=== PATIENT | male | born 1935 | race Caucasian/White ===

== ENCOUNTER → 2016-11-04 | Outpatient (CLI) | payer MEDICARE, BC ==
[2016-11-04 08:29] LABS: Appearance,Urine Clear (Clear); Basophils # (A) 0.1 k/uL (0-0.2); Basophils % (A) 1 %; Bilirubin,Urine Negative (Negative); CH 31.7; Eosinophils # (A) 0.7 k/uL (0-0.7); Eosinophils % (A) 9 %; Glucose,Urine (UA) Negative (Negative); HGB 14.6 gm/dL (13.0-17.5); Ketones,Urine Negative (Negative); Leukocyte Esterase,Urine Negative (Negative); Luc # (Auto) 0.14; Luc % (Auto) 2; Lymphocytes # (A) 1.6 k/uL (1.0-4.8); Lymphocytes % (A) 20 %; MCH 31.1 pg (25.0-35.0); MCHC 33.1 g/dL (31.0-37.0); MCV 93.9 fL (80.0-100.0); Mean Platelet Volume 8.1; Monocytes # (A) 0.4 k/uL (0-1.0); Monocytes % (A) 6 %; Neutrophils % (A) 63 %; Nitrite,Urine Negative (Negative); Protein,Urine Trace (Negative); RBC 4.68 m/uL (4.30-5.90); RDW 13.6 % (11.5-15.5); Specific Gravity,Urine 1.007 (1.001-1.035); UA Billing (MACRO vs. MICRO) CHEM; Urobilinogen,Urine <2.0 mg/dL (<2.0); WBC 7.9 k/uL (3.8-10.6); WBC (Perox) 8.24
[2016-11-04 10:37] LABS: Calcium 9.4 mg/dL (8.4-10.2); Magnesium 1.9 mg/dL (1.6-2.3); Potassium 4.1 mmol/L (3.5-5.1); Uric Acid 6.6 mg/dL (3.5-8.5)
[2016-11-04 10:46] LABS: % Iron Saturation 34.9 % (20-50)
== END | disposition home or self-care (01) ==
LOC: LABWHC1 07:42
PROVIDERS: ATTEND Nurse Practitioner Family
DX: N18.4 Chronic kidney disease, stage 4 (severe) (principal); N39.0 Urinary tract infection, site not specified; D64.9 Anemia, unspecified; E55.9 Vitamin D deficiency, unspecified; E79.0 Hyperuricemia without signs of inflammatory arthritis and tophaceous disease
CPT/HCPCS: 36415; 80048; 81003; 82040; 82306; 82728; 83540; 83550; 83735; 83970; 84100; 84550; 85025

== ENCOUNTER → 2016-11-06 | Outpatient (CLI) | payer MEDICARE, BC ==
--- NOTE | 2016-11-06 11:39 | US ---
EXAMINATION TYPE: US kidneys/renal and bladder DATE OF EXAM: 11/06/2016 7:55 AM COMPARISON: Previous exam October CLINICAL HISTORY: enlarged prostate , f/u cyst EXAM MEASUREMENTS: Right Kidney: 9.5 x 4.1 x 4.4 cm Left Kidney: 9.4 x 4.3 x 4.4 cm Post Void Residual Volume: 292.5 ml ANATOMY Right Kidney: small cyst upper pole 0.97 x 0.9 x 0.6 cm Left Kidney: wnl Bladder: wnl Bilateral Jets seen: yes Normal Post Void Residual: no There is no evidence for hydronephrosis at this point in time. No nephrolithiasis is seen. No yaa s are identified. The urinary bladder is anechoic. There is an elevated post void residual volume. B ilateral ureteral jets are seen. Small upper pole right renal cyst is stable. No internal echoes, there is increased through transmiss ion, imperceptible wall. IMPRESSION: Correlate for bladder outlet obstruction. Stable upper pole right renal cyst thought to be simple Normal Values: Renal Length = 9 - 12cm Bladder Wall: < 0.3cm
== END ==
LOC: RADUSWWP 07:21
PROVIDERS: ATTEND Urology
DX: N28.1 Cyst of kidney, acquired (principal)
CPT/HCPCS: 76770

== ENCOUNTER → 2017-01-01 | Outpatient (CLI) | payer MEDICARE, BC ==
[2017-01-01 10:12] LABS: ALT 33 U/L (21-72); AST 35 U/L (17-59); Cholesterol 113 mg/dL (<200); HDL Cholesterol 29 mg/dL (40-60); Triglycerides 152 mg/dL (<150)
== END | disposition home or self-care (01) ==
LOC: LABWHC1 12-31 11:43
PROVIDERS: ATTEND Internal Medicine Cardiovascular Disease
DX: E78.5 Hyperlipidemia, unspecified (principal)
CPT/HCPCS: 36415; 80061; 84450; 84460

== ENCOUNTER → 2017-03-20 | Outpatient (CLI) | payer MEDICARE, BC ==
[2017-03-20 08:02] LABS: Basophils % (A) 0 %; CH 31.7; CHCM 32.9; Eosinophils # (A) 0.3 k/uL (0-0.7); Eosinophils % (A) 5 %; HCT 43.2 % (39.0-53.0); HDW 2.62; HGB 14.3 gm/dL (13.0-17.5); Luc # (Auto) 0.18; Luc % (Auto) 3; Lymphocytes % (A) 30 %; MCH 32.1 pg (25.0-35.0); MCHC 33.1 g/dL (31.0-37.0); MCV 96.7 fL (80.0-100.0); Mean Platelet Volume 7.4; Monocytes # (A) 0.4 k/uL (0-1.0); Monocytes % (A) 6 %; Neutrophils # (A) 3.9 k/uL (1.3-7.7); Neutrophils % (A) 57 %; RBC 4.47 m/uL (4.30-5.90); RDW 14.1 % (11.5-15.5); WBC 6.8 k/uL (3.8-10.6); WBC (Perox) 6.67
[2017-03-20 08:05] LABS: Appearance,Urine Clear (Clear); Bilirubin,Urine Negative (Negative); Glucose,Urine (UA) Negative (Negative); Ketones,Urine Negative (Negative); Leukocyte Esterase,Urine Negative (Negative); Nitrite,Urine Negative (Negative); PH, Urine 5.5 (5.0-8.0); Protein,Urine Negative (Negative); Specific Gravity,Urine 1.007 (1.001-1.035); UA Billing (MACRO vs. MICRO) CHEM; Urobilinogen,Urine <2.0 mg/dL (<2.0)
[2017-03-20 09:24] LABS: Calcium 9.9 mg/dL (8.4-10.2); Magnesium 2.5 mg/dL (1.6-2.3); Phosphorous 3.2 mg/dL (2.5-4.5); Potassium 4.8 mmol/L (3.5-5.1); Uric Acid 6.9 mg/dL (3.5-8.5)
[2017-03-20 09:32] LABS: % Iron Saturation 20.3 % (20-50)
== END | disposition home or self-care (01) ==
LOC: LABWHC1 07:34
PROVIDERS: ATTEND Nurse Practitioner Family
DX: N18.4 Chronic kidney disease, stage 4 (severe) (principal); E55.9 Vitamin D deficiency, unspecified; M10.9 Gout, unspecified; N25.81 Secondary hyperparathyroidism of renal origin; N39.0 Urinary tract infection, site not specified
CPT/HCPCS: 36415; 80048; 81003; 82040; 82306; 82728; 83540; 83550; 83735; 83970; 84100; 84550; 85025

== ENCOUNTER → 2018-01-27 | Outpatient (CLI) | payer MEDICARE, BC ==
[2018-01-27 07:36] LABS: Basophils % (A) 0 %; Eosinophils # (A) 0.2 k/uL (0-0.7); Eosinophils % (A) 2 %; HCT 40.5 % (39.0-53.0); HGB 13.5 gm/dL (13.0-17.5); Lymphocytes # (A) 2.1 k/uL (1.0-4.8); Lymphocytes % (A) 20 %; MCHC 33.3 g/dL (31.0-37.0); Mean Platelet Volume 7.4; Monocytes # (A) 0.4 k/uL (0-1.0); Monocytes % (A) 4 %; Neutrophils # (A) 7.4 k/uL (1.3-7.7); Neutrophils % (A) 73 %; Platelet Count 235 k/uL (150-450); RBC 4.35 m/uL (4.30-5.90); RDW 14.1 % (11.5-15.5); WBC 10.1 k/uL (3.8-10.6)
[2018-01-27 07:49] LABS: Calcium 9.1 mg/dL (8.4-10.2); Phosphorus 3.2 mg/dL (2.5-4.5); Potassium 3.9 mmol/L (3.5-5.1); Uric Acid 6.1 mg/dL (3.5-8.5)
[2018-01-27 10:40] LABS: Iron Saturation 21.28 (15.00-50.00)
[2018-01-27 10:49] LABS: Vitamin D 25 Hydroxy 46.7 ng/mL (30.0-100.0)
[2018-01-27 11:31] LABS: Parathyroid Hormone Intact 135.7 pg/mL (14.0-72.0)
[2018-01-27 11:34] LABS: Appearance,Urine Cloudy (Clear); Bacteria,Urine Rare /hpf; Bilirubin,Urine Negative (Negative); Blood,Urine Moderate (Negative); Color,Urine Light Yellow; Glucose,Urine (UA) Negative (Negative); Ketones,Urine Negative (Negative); Leukocyte Esterase,Urine Moderate (Negative); Nitrite,Urine Negative (Negative); PH, Urine 6.5 (5.0-8.0); Protein,Urine 1+ (Negative); RBC,Urine 6 /hpf (0-5); Specific Gravity,Urine 1.006 (1.001-1.035); Squamous Epithelial Cell,Urine 3 /hpf (0-4); Urobilinogen,Urine <2.0 mg/dL (<2.0); WBC,Urine 22 /hpf (0-5)
== END | disposition home or self-care (01) ==
LOC: LABWHC1 07:00
PROVIDERS: ATTEND Internal Medicine Nephrology
DX: N18.4 Chronic kidney disease, stage 4 (severe) (principal); D63.1 Anemia in chronic kidney disease; N25.81 Secondary hyperparathyroidism of renal origin; M10.9 Gout, unspecified; N39.0 Urinary tract infection, site not specified
CPT/HCPCS: 36415; 80048; 81001; 82306; 82728; 83540; 83550; 83735; 83970; 84100; 84550; 85025

== ENCOUNTER → 2018-07-09 | Outpatient (CLI) | payer MEDICARE, BC ==
[2018-07-09 07:46] LABS: Basophils % (A) 0 %; Eosinophils # (A) 0.6 k/uL (0-0.7); Eosinophils % (A) 7 %; HCT 40.9 % (39.0-53.0); Lymphocytes # (A) 1.7 k/uL (1.0-4.8); Lymphocytes % (A) 20 %; MCH 29.8 pg (25.0-35.0); MCHC 31.9 g/dL (31.0-37.0); MCV 93.5 fL (80.0-100.0); Mean Platelet Volume 7.1; Monocytes # (A) 0.5 k/uL (0-1.0); Monocytes % (A) 6 %; Neutrophils # (A) 5.5 k/uL (1.3-7.7); Neutrophils % (A) 64 %; Platelet Count 235 k/uL (150-450); RBC 4.37 m/uL (4.30-5.90); RDW 14.9 % (11.5-15.5); WBC 8.5 k/uL (3.8-10.6)
[2018-07-09 08:29] LABS: Appearance,Urine Cloudy (Clear); Bacteria,Urine Many /hpf; Bilirubin,Urine Negative (Negative); Blood,Urine Trace (Negative); Color,Urine Light Yellow; Glucose,Urine (UA) Negative (Negative); Ketones,Urine Negative (Negative); Leukocyte Esterase,Urine Large (Negative); Mucus,Urine Rare /hpf; Nitrite,Urine Positive (Negative); Protein,Urine 1+ (Negative); RBC,Urine 1 /hpf (0-5); Specific Gravity,Urine 1.011 (1.001-1.035); Squamous Epithelial Cell,Urine <1 /hpf (0-4); Urobilinogen,Urine <2.0 mg/dL (<2.0); WBC,Urine 154 /hpf (0-5)
[2018-07-09 09:02] LABS: Calcium 9.1 mg/dL (8.4-10.2); Digoxin 0.7 ng/mL; Magnesium 2.1 mg/dL (1.6-2.3); Phosphorus 3.2 mg/dL (2.5-4.5); Potassium 4.3 mmol/L (3.5-5.1); Uric Acid 5.8 mg/dL (3.5-8.5)
[2018-07-09 11:36] LABS: Iron Saturation 13.86 (15.00-50.00)
[2018-07-09 11:39] LABS: Parathyroid Hormone Intact 84.2 pg/mL (14.0-72.0)
[2018-07-09 11:44] LABS: Vitamin D 25 Hydroxy 39.2 ng/mL (30.0-100.0)
== END | disposition home or self-care (01) ==
LOC: LABWHC1 07:04
PROVIDERS: ATTEND Internal Medicine Cardiovascular Disease
DX: N18.4 Chronic kidney disease, stage 4 (severe) (principal); D63.1 Anemia in chronic kidney disease; N25.81 Secondary hyperparathyroidism of renal origin; E55.9 Vitamin D deficiency, unspecified; M10.9 Gout, unspecified; N39.0 Urinary tract infection, site not specified; I50.9 Heart failure, unspecified
CPT/HCPCS: 36415; 80048; 80162; 81001; 82306; 82728; 83540; 83550; 83735; 83970; 84100; 84550; 85025

== ENCOUNTER → 2018-09-28 | Outpatient (CLI) | payer MEDICARE, BC ==
--- NOTE | 2018-09-28 12:40 | XR ---
EXAMINATION TYPE: XR ankle complete LT DATE OF EXAM: 09/28/2018 CLINICAL HISTORY: Chronic left ankle pain TECHNIQUE: Frontal, lateral and oblique images of the left ankle are obtained. COMPARISON: None. FINDINGS: There is no acute fracture/dislocation evident in the left ankle. The ankle mortise appea rs within normal limits. There is soft tissue prominence dorsally and medially over the region of the deltoid ligament. Small plantar enthesophyte is noted as well as calcific tendinopathy of the Achill es tendon. Small vessel atherosclerosis is also seen. Mild hindfoot arthropathy is demonstrated as os seous proliferation. IMPRESSION: 1. No acute fracture or dislocation in the left ankle. 2. Mild hindfoot arthropathy and nonspecific soft tissue swelling over the region of the deltoid yesica a. MR could further evaluate this ligament. 3. Small plantar heel spur.
== END | disposition home or self-care (01) ==
LOC: RADXRMAIN 11:01
PROVIDERS: ATTEND Family Medicine
DX: M19.072 Primary osteoarthritis, left ankle and foot (principal); M77.32 Calcaneal spur, left foot

== ENCOUNTER → 2018-10-19 | Outpatient (CLI) | payer MEDICARE, BC ==
[2018-10-19 08:26] LABS: Basophils % (A) 1 %; Eosinophils # (A) 0.6 k/uL (0-0.7); Eosinophils % (A) 7 %; HGB 13.8 gm/dL (13.0-17.5); Lymphocytes # (A) 1.7 k/uL (1.0-4.8); Lymphocytes % (A) 19 %; MCH 31.3 pg (25.0-35.0); MCHC 33.7 g/dL (31.0-37.0); Mean Platelet Volume 7.3; Monocytes # (A) 0.6 k/uL (0-1.0); Monocytes % (A) 7 %; Neutrophils # (A) 5.5 k/uL (1.3-7.7); Neutrophils % (A) 64 %; Platelet Count 208 k/uL (150-450); RBC 4.41 m/uL (4.30-5.90); RDW 14.3 % (11.5-15.5); WBC 8.6 k/uL (3.8-10.6)
[2018-10-19 11:37] LABS: Iron Saturation 25.8 (15.00-50.00)
[2018-10-19 11:42] LABS: Albumin 4.1 g/dL (3.80-4.90); Anion Gap 9.8 mmol/L (4.00-12.00); Calcium 9.6 mg/dL (8.7-10.3); Carbon Dioxide 28.2 mmol/L (21.6-31.8); Phosphorus 3.2 mg/dL (2.4-5.1); Potassium 4.1 mmol/L (3.5-5.5); Uric Acid 6.5 mg/dL (3.7-8.7)
[2018-10-19 11:46] LABS: Parathyroid Hormone Intact 99.4 pg/mL (14.0-72.0); Vitamin D 25 Hydroxy 41.5 ng/mL (30.0-100.0)
[2018-10-19 11:54] LABS: Creatinine,Urine Random 58.4 mg/dL
[2018-10-19 11:56] LABS: Total Protein,Urine Random 35.6 mg/dL (0.0-13.5)
== END | disposition home or self-care (01) ==
LOC: LABWHC1 07:08
PROVIDERS: ATTEND Nurse Practitioner Family
DX: M10.9 Gout, unspecified (principal); E55.9 Vitamin D deficiency, unspecified; D63.1 Anemia in chronic kidney disease; N25.81 Secondary hyperparathyroidism of renal origin; N18.4 Chronic kidney disease, stage 4 (severe)
CPT/HCPCS: 36415; 80048; 82040; 82306; 82570; 82728; 83540; 83550; 83735; 83970; 84100; 84156; 84550; 85025

== ENCOUNTER 2019-02-26 07:45 | Emergency (ER) | payer MEDICARE ==
[2019-02-26 07:56] VITALS: BP 147/87; PULSE 74; RESP 18; TEMP 97.4
--- NOTE | 2019-02-26 07:58 | ED ---
Head Injury HPI - General Chief complaint: Head Injury Stated complaint: fall, head lac Time Seen by Provider: 02/26/19 07:56 Source: patient, family, RN notes reviewed, old records reviewed Mode of arrival: ambulatory Limitations: no limitations - History of Present Illness Initial comments: In this is an 81-year-old female the ER status post fall. Patient a fall hitting his head on the dresser, is following already is on blood thinners. Patient complaining of head. Bleeding no loss of consciousness. No other injuries noted MD Complaint: head injury, head pain, fall -: minutes(s) Mechanism of Injury: unsure Location: parietal Loss of Consciousness: no Previous Trauma to this Area: No Severity: mild Quality: sharp Consistency: constant Provoking factors: none known Other Injuries: laceration Context: on Warfarin Associated Symptoms: denies other symptoms - Related Data Home Medications Medication Instructions Recorded Confirmed Atorvastatin [Lipitor] 20 mg PO DAILY 01/17/16 04/11/16 Calcitriol 0.25 mcg PO MOWEFR 01/17/16 04/11/16 Digoxin [Digitek] 125 mcg PO DAILY 01/17/16 04/11/16 Ergocalciferol [Vitamin D2 50,000 unit PO QMONTH 01/17/16 04/11/16 (DRISDOL)] Febuxostat [Uloric] 40 mg PO HS 01/17/16 04/11/16 Furosemide 60 mg PO BID 01/17/16 04/11/16 Ipratropium/Albuterol Sulfate 1 puff INHALATION QID PRN 01/17/16 04/11/16 [Combivent Respimat Inhaler] Nebivolol HCl [Bystolic] 0.5 tab PO QAM 01/17/16 04/11/16 Warfarin Sodium 5 mg PO MOTUTHSA 01/17/16 04/11/16 Warfarin [Coumadin] 2.5 mg PO SUWEFR 01/17/16 04/11/16 Ipratropium-Albuterol Nebulize 1 applicate INHALATION QID 01/18/16 04/11/16 [Duoneb 0.5 mg-3 mg/3 ml Soln] Acetaminophen [Tylenol] 500 mg PO QAM 04/08/16 04/11/16 Ciprofloxacin HCl [Cipro] 500 mg PO Q12HR 04/08/16 04/11/16 Ferrous Sulfate [Feosol] 325 mg PO DAILY 04/08/16 04/11/16 Sennosides/Docusate Sodium 1 tab PO DAILY 04/08/16 04/11/16 [Docusate Sodium-Senna Tablet] Tamsulosin [Flomax] 0.4 mg PO HS 04/08/16 04/11/16 Allergies/Adverse reactions: Allergies Allergy/AdvReac Type Severity Reaction Status Date / Time No Known Allergies Allergy Verified 02/26/19 07:53 Review of Systems ROS Statement: Those systems with pertinent positive or pertinent negative responses have been documented in the HPI. ROS Other: All systems not noted in ROS Statement are negative. Past Medical History Past Medical History: Atrial Fibrillation, Heart Failure, Hyperlipidemia, Hypertension, Prostate Disorder Additional Past Medical History / Comment(s): enlarged prostate, macular dengeration left eye History of Any Multi-Drug Resistant Organisms: None Reported Past Surgical History: Prostate Surgery Additional Past Surgical History / Comment(s): scar tissue removed from penis; prostate problem,left wrist surgery with hardware. double hernia repair; 2 goiter surgeries 1994; right ankle pin Past Anesthesia/Blood Transfusion Reactions: No Reported Reaction Past Psychological History: No Psychological Hx Reported Smoking Status: Former smoker Past Alcohol Use History: None Reported Past Drug Use History: None Reported - Past Family History Father Family Medical History: Cancer Mother Family Medical History: Cancer Additional Family Medical History / Comment(s): leukemia Brother(s) Family Medical History: Coronary Artery Disease (CAD) General Exam Limitations: no limitations General appearance: alert, in no apparent distress Head exam: Present: normocephalic, normal inspection. Absent: atraumatic (Patient has 10 cm scalp laceration) Eye exam: Present: normal appearance, PERRL, EOMI. Absent: scleral icterus, conjunctival injection, periorbital swelling ENT exam: Present: normal exam, mucous membranes moist Neck exam: Present: normal inspection. Absent: tenderness, meningismus, lymphadenopathy Respiratory exam: Present: normal lung sounds bilaterally. Absent: respiratory distress, wheezes, rales, rhonchi, stridor Cardiovascular Exam: Present: regular rate, normal rhythm, normal heart sounds. Absent: systolic murmur, diastolic murmur, rubs, gallop, clicks GI/Abdominal exam: Present: soft, normal bowel sounds. Absent: distended, tenderness, guarding, rebound, rigid Extremities exam: Present: normal inspection, full ROM, normal capillary refill. Absent: tenderness, pedal edema, joint swelling, calf tenderness Back exam: Present: normal inspection Neurological exam: Present: alert, oriented X3, CN II-XII intact Psychiatric exam: Present: normal affect, normal mood Skin exam: Present: warm, dry, intact, normal color. Absent: rash Course Vital Signs 02/26/19 07:53 Temperature 97.4 F L Pulse Rate 74 Respiratory 18 Rate Blood Pressure 147/87 O2 Sat by Pulse 98 Oximetry Procedures - Laceration Laceration #1 Consent Obtained: verbal consent Indication: laceration Site: scalp Size (cm): 10 Description: linear Depth: simple, single layer Pre-repair: wound explored Type of Sutures: other ([place]) Technique: simple, interrupted Medical Decision Making - Medical Decision Making 83 male the ER for evaluation. Patient presents today for evaluation of fall and head injury on blood thinners. Patient had head laceration which is 60 with mariana, CT brain C-spine is negative for acute disease and patient can be discharged home - Radiology Data Radiology results: report reviewed (CT brain C-spine negative for acute disease), image reviewed Disposition Clinical Impression: Closed head injury, Fall, Scalp laceration Disposition: HOME SELF-CARE Condition: Good Instructions (If sedation given, give patient instructions): Laceration (ED) Is patient prescribed a controlled substance at d/c from ED?: No Referrals: Ladarius Hodges DO [Primary Care Provider] - 1-2 days
--- NOTE | 2019-02-26 08:38 | CT ---
EXAMINATION TYPE: CT brain ben trevizo DATE OF EXAM: 02/26/2019 COMPARISON: None HISTORY: Fall today with posterior injury and laceration CT DLP: 1386.[address] of the brain was performed. The ventricles, basal cisterns and sulci overlying the cerebral convexities demonstrate mild enlargem ent. There is no evidence for intracranial hemorrhage or sulcal effacement. There is decreased attenuatio n about the periventricular white matter and deep white matter of both cerebral hemispheres, compatib le with chronic small vessel ischemia. No mass effects are seen. If symptoms persist consider MRI. Osseous calvarium is intact. IMPRESSION: 1. Age related atrophic and chronic small vessel ischemic change without acute intracranial process seen at this time. CT Cervical Spine: Unenhanced CT of the cervical spine was performed with bone and soft tissue window settings submitted . Coronal and sagittal reconstruction is obtained. There is normal alignment and prevertebral soft tissues. No evidence for acute cervical fracture . Scattered degenerative disc disease and spondylosis. Biapical scarring. IMPRESSION: 1. No evidence for acute fracture or subluxation of the cervical spine.
== END 2019-02-26 08:55 | disposition home or self-care (01) ==
LOC: EC 07:45
DX: S01.01XA Laceration without foreign body of scalp, initial encounter (principal); I48.91 Unspecified atrial fibrillation; I11.0 Hypertensive heart disease with heart failure; I50.9 Heart failure, unspecified; E78.5 Hyperlipidemia, unspecified; Z79.01 Long term (current) use of anticoagulants; Z79.51 Long term (current) use of inhaled steroids; Z79.899 Other long term (current) drug therapy; Z87.891 Personal history of nicotine dependence; W01.198A Fall on same level from slipping, tripping and stumbling with subsequent striking against other object, initial encounter
CPT/HCPCS: 12004; 70450; 72125; 99284

== ENCOUNTER → 2019-03-03 | Outpatient (CLI) | payer MEDICARE ==
[2019-03-03 09:51] LABS: Basophils % (A) 0 %; Eosinophils # (A) 0.4 k/uL (0-0.7); Eosinophils % (A) 5 %; HCT 40.7 % (39.0-53.0); HGB 13.3 gm/dL (13.0-17.5); Lymphocytes # (A) 1.2 k/uL (1.0-4.8); Lymphocytes % (A) 15 %; MCH 31.1 pg (25.0-35.0); MCHC 32.7 g/dL (31.0-37.0); MCV 95.3 fL (80.0-100.0); Mean Platelet Volume 7.6; Monocytes # (A) 0.5 k/uL (0-1.0); Monocytes % (A) 6 %; Neutrophils # (A) 5.8 k/uL (1.3-7.7); Neutrophils % (A) 72 %; Platelet Count 226 k/uL (150-450); RBC 4.27 m/uL (4.30-5.90); RDW 14.2 % (11.5-15.5); WBC 8.1 k/uL (3.8-10.6)
[2019-03-03 16:18] LABS: Albumin 4.1 g/dL (3.80-4.90); Anion Gap 6.4 mmol/L (4.00-12.00); Calcium 9.2 mg/dL (8.7-10.3); Carbon Dioxide 29.6 mmol/L (21.6-31.8); Magnesium 1.8 mg/dL (1.5-2.4); Phosphorus 2.2 mg/dL (2.4-5.1); Uric Acid 6.1 mg/dL (3.7-8.7)
[2019-03-03 16:23] LABS: Parathyroid Hormone Intact 85.9 pg/mL (14.0-72.0)
[2019-03-03 18:35] LABS: Anti-DNA, DS unit <1.0 IU/mL; DNA Double-Stranded NEGATIVE (NEGATIVE)
[2019-03-03 19:54] LABS: Iron Saturation 25.94 (15.00-50.00)
[2019-03-03 21:22] LABS: Creatinine,Urine Random 92.9 mg/dL; Total Protein,Urine Random 121.1 mg/dL (0.0-13.5)
[2019-03-04 13:57] LABS: C-ANCA <1:20 Titer (<1:20); P-ANCA <1:20 Titer (<1:20)
== END | disposition home or self-care (01) ==
LOC: LABWHC1 08:29
PROVIDERS: ATTEND Nurse Practitioner Family
DX: M10.9 Gout, unspecified (principal); N18.3 Chronic kidney disease, stage 3 (moderate); D63.1 Anemia in chronic kidney disease; N25.81 Secondary hyperparathyroidism of renal origin; R80.9 Proteinuria, unspecified
CPT/HCPCS: 36415; 80048; 82040; 82306; 82570; 82728; 83516; 83540; 83550; 83735; 83970; 84100; 84156; 84550; 85025; 86160; 86162; 86225; 86255; 86334; 86335

== ENCOUNTER 2019-04-12 19:27 | Inpatient (IN) | payer MEDICARE ==
[2019-04-12] MEDS ORDERED: IPRATROPIUM-ALBUTEROL 3 ML NEB INHALATION STA (20:29)
[2019-04-12] MEDS ORDERED: ACETAMINOPHEN TAB 500 MG TAB PO STA (20:29)
--- NOTE | 2019-04-12 20:31 | ED ---
General Adult HPI - General Chief complaint: Weakness Stated complaint: Body Aches, weakness Time Seen by Provider: 04/12/19 19:55 Source: patient, RN notes reviewed Mode of arrival: wheelchair Limitations: no limitations - History of Present Illness Initial comments: Patient is a pleasant 84-year-old male presenting to the emergency Department with complaints of difficulty in breathing and fever. Onset of symptoms was today. Patient does have some similar symptoms previously with dyspnea associated with COPD. Patient amiss to having a productive cough with green sputum. Patient has fatigue and myalgias. No abdominal pain. - Related Data Home Medications Medication Instructions Recorded Confirmed Atorvastatin [Lipitor] 20 mg PO DAILY 01/17/16 04/12/19 Calcitriol 0.25 mcg PO MOWEFR 01/17/16 04/12/19 Digoxin [Digitek] 125 mcg PO DAILY 01/17/16 04/12/19 Ergocalciferol [Vitamin D2 50,000 unit PO Q30D 01/17/16 04/12/19 (DRISDOL)] Febuxostat [Uloric] 40 mg PO HS 01/17/16 04/12/19 Furosemide 60 mg PO BID 01/17/16 04/12/19 Ipratropium/Albuterol Sulfate 1 puff INHALATION RT-QID PRN 01/17/16 04/12/19 [Combivent Respimat Inhaler] Warfarin Sodium 5 mg PO MOTUTHSA 01/17/16 04/12/19 Warfarin [Coumadin] 2.5 mg PO SUWEFR 01/17/16 04/12/19 Ipratropium-Albuterol Nebulize 3 ml INHALATION RT-QID 01/18/16 04/12/19 [Duoneb 0.5 mg-3 mg/3 ml Soln] Acetaminophen [Tylenol] 500 mg PO QAM 04/08/16 04/12/19 Ferrous Sulfate [Feosol] 325 mg PO DAILY 04/08/16 04/12/19 Sennosides/Docusate Sodium 1 tab PO DAILY 04/08/16 04/12/19 [Docusate Sodium-Senna Tablet] Tamsulosin [Flomax] 0.4 mg PO HS 04/08/16 04/12/19 Metoprolol Succinate (ER) [Toprol 50 mg PO DAILY 04/12/19 04/12/19 Xl] Allergies Allergy/AdvReac Type Severity Reaction Status Date / Time codeine Allergy Itching Verified 04/12/19 20:33 Review of Systems ROS Statement: Those systems with pertinent positive or pertinent negative responses have been documented in the HPI. ROS Other: All systems not noted in ROS Statement are negative. Constitutional: Reports: fever, chills Eyes: Denies: eye pain ENT: Denies: ear pain Respiratory: Reports: cough, dyspnea Cardiovascular: Denies: chest pain Endocrine: Reports: fatigue Gastrointestinal: Denies: abdominal pain Genitourinary: Denies: dysuria Skin: Denies: rash Neurological: Denies: weakness Past Medical History Past Medical History: Atrial Fibrillation, Heart Failure, Hyperlipidemia, Hypertension, Prostate Disorder Additional Past Medical History / Comment(s): enlarged prostate, macular dengeration left eye History of Any Multi-Drug Resistant Organisms: None Reported Past Surgical History: Prostate Surgery Additional Past Surgical History / Comment(s): scar tissue removed from penis; prostate problem,left wrist surgery with hardware. double hernia repair; 2 goiter surgeries 1994; right ankle pin Past Anesthesia/Blood Transfusion Reactions: No Reported Reaction Past Psychological History: No Psychological Hx Reported Smoking Status: Former smoker Past Alcohol Use History: None Reported Past Drug Use History: None Reported - Past Family History Father Family Medical History: Cancer Mother Family Medical History: Cancer Additional Family Medical History / Comment(s): leukemia Brother(s) Family Medical History: Coronary Artery Disease (CAD) General Exam Limitations: no limitations General appearance: alert, in no apparent distress Head exam: Present: atraumatic Eye exam: Present: normal appearance, PERRL ENT exam: Present: normal oropharynx Neck exam: Present: normal inspection Respiratory exam: Present: wheezes Cardiovascular Exam: Present: tachycardia, irregular rhythm GI/Abdominal exam: Present: soft. Absent: tenderness Extremities exam: Present: normal inspection. Absent: pedal edema, calf tenderness Neurological exam: Present: alert Psychiatric exam: Present: normal affect, normal mood Skin exam: Present: normal color Course Vital Signs 04/12/19 04/12/19 04/12/19 19:49 20:18 20:22 Temperature 100.6 F H 102.1 F H Pulse Rate 122 H Respiratory 18 20 Rate Blood Pressure 124/75 O2 Sat by Pulse 95 Oximetry 04/12/19 04/12/19 21:18 21:24 Temperature Pulse Rate 107 H 111 H Respiratory Rate Blood Pressure O2 Sat by Pulse Oximetry EKG Findings - EKG Comments: EKG Findings:: A. fib with a rate of 101. QRS 84. QT 266. QTc 344. Normal axis. Septal Q waves. No acute ST change. Medical Decision Making - Medical Decision Making Patient reevaluated and somewhat improved. Patient and family updated on results and plan. Case was discussed in detail with Dr. Corley, covering for Dr. Hodges, who will admit. Patient states he sees Dr. Greene as well as. - Lab Data Result diagrams: 04/12/19 20:41 04/12/19 20:41 Lab Results 04/12/19 04/12/19 04/12/19 Range/Units 20:41 20:41 20:41 WBC 17.5 H (3.8-10.6) k/uL RBC 4.41 (4.30-5.90) m/uL Hgb 13.5 (13.0-17.5) gm/dL Hct 40.4 (39.0-53.0) % MCV 91.6 (80.0-100.0) fL MCH 30.7 (25.0-35.0) pg MCHC 33.5 (31.0-37.0) g/dL RDW 13.9 (11.5-15.5) % Plt Count 267 (150-450) k/uL Neutrophils % 89 % Lymphocytes % 5 % Monocytes % 4 % Eosinophils % 1 % Basophils % 0 % Neutrophils # 15.6 H (1.3-7.7) k/uL Lymphocytes # 0.8 L (1.0-4.8) k/uL Monocytes # 0.8 (0-1.0) k/uL Eosinophils # 0.1 (0-0.7) k/uL Basophils # 0.0 (0-0.2) k/uL PT (9.0-12.0) sec INR (<1.2) APTT (22.0-30.0) sec Sodium 136 L (137-145) mmol/L Potassium 3.6 (3.5-5.1) mmol/L Chloride 95 L (98-107) mmol/L Carbon Dioxide 31 H (22-30) mmol/L Anion Gap 10 mmol/L BUN 33 H (9-20) mg/dL Creatinine 1.42 H (0.66-1.25) mg/dL Est GFR (CKD-EPI)AfAm 53 (>60 ml/min/1.73 sqM) Est GFR (CKD-EPI)NonAf 46 (>60 ml/min/1.73 sqM) Glucose 122 H (74-99) mg/dL Plasma Lactic Acid Elias 1.5 (0.7-2.0) mmol/L Calcium 9.0 (8.4-10.2) mg/dL Total Bilirubin 0.8 (0.2-1.3) mg/dL AST 29 (17-59) U/L ALT 34 (21-72) U/L Alkaline Phosphatase 124 (38-126) U/L Total Protein 6.8 (6.3-8.2) g/dL Albumin 3.8 (3.5-5.0) g/dL 04/12/19 Range/Units 20:41 WBC (3.8-10.6) k/uL RBC (4.30-5.90) m/uL Hgb (13.0-17.5) gm/dL Hct (39.0-53.0) % MCV (80.0-100.0) fL MCH (25.0-35.0) pg MCHC (31.0-37.0) g/dL RDW (11.5-15.5) % Plt Count (150-450) k/uL Neutrophils % % Lymphocytes % % Monocytes % % Eosinophils % % Basophils % % Neutrophils # (1.3-7.7) k/uL Lymphocytes # (1.0-4.8) k/uL Monocytes # (0-1.0) k/uL Eosinophils # (0-0.7) k/uL Basophils # (0-0.2) k/uL PT 36.6 H (9.0-12.0) sec INR 3.8 H (<1.2) APTT 36.8 H (22.0-30.0) sec Sodium (137-145) mmol/L Potassium (3.5-5.1) mmol/L Chloride (98-107) mmol/L Carbon Dioxide (22-30) mmol/L Anion Gap mmol/L BUN (9-20) mg/dL Creatinine (0.66-1.25) mg/dL Est GFR (CKD-EPI)AfAm (>60 ml/min/1.73 sqM) Est GFR (CKD-EPI)NonAf (>60 ml/min/1.73 sqM) Glucose (74-99) mg/dL Plasma Lactic Acid Elias (0.7-2.0) mmol/L Calcium (8.4-10.2) mg/dL Total Bilirubin (0.2-1.3) mg/dL AST (17-59) U/L ALT (21-72) U/L Alkaline Phosphatase (38-126) U/L Total Protein (6.3-8.2) g/dL Albumin (3.5-5.0) g/dL - Radiology Data Radiology results: image reviewed (Chest x-ray. Did not reveal acute process, mild blunting right costophrenic angle.) Disposition Clinical Impression: Acute exacerbation of chronic obstructive pulmonary disease (COPD) Disposition: ADMITTED IP TO THIS HOSP Is patient prescribed a controlled substance at d/c from ED?: No Referrals: Ladarius Hodges DO [Primary Care Provider] - 1-2 days Decision Time: 21:29
[2019-04-12 20:57] LABS: Basophils % (A) 0 %; Eosinophils # (A) 0.1 k/uL (0-0.7); Eosinophils % (A) 1 %; HCT 40.4 % (39.0-53.0); HGB 13.5 gm/dL (13.0-17.5); Lymphocytes # (A) 0.8 k/uL (1.0-4.8); Lymphocytes % (A) 5 %; MCH 30.7 pg (25.0-35.0); MCHC 33.5 g/dL (31.0-37.0); MCV 91.6 fL (80.0-100.0); Mean Platelet Volume 7.2; Monocytes # (A) 0.8 k/uL (0-1.0); Monocytes % (A) 4 %; Neutrophils # (A) 15.6 k/uL (1.3-7.7); Neutrophils % (A) 89 %; Platelet Count 267 k/uL (150-450); RBC 4.41 m/uL (4.30-5.90); RDW 13.9 % (11.5-15.5); WBC 17.5 k/uL (3.8-10.6)
[2019-04-12 21:07] LABS: Albumin 3.8 g/dL (3.5-5.0); Potassium 3.6 mmol/L (3.5-5.1); Total Bilirubin 0.8 mg/dL (0.2-1.3); Total Protein 6.8 g/dL (6.3-8.2)
[2019-04-12] MEDS: SODIUM CHLORIDE 0.9% 500 ML 500 ML IV SCH ×2 (21:09→21:30)
[2019-04-12 21:10] LABS: INR 3.8 (<1.2); Partial Thromboplastin Time 36.8 sec (22.0-30.0); Prothrombin Time 36.6 sec (9.0-12.0)
--- NOTE | 2019-04-12 21:23 | XR ---
EXAMINATION TYPE: XR chest 2V DATE OF EXAM: 04/12/2019 COMPARISON: 01/17/2016 HISTORY: Fever and weakness TECHNIQUE: Frontal and lateral views of the chest are obtained. FINDINGS: There is mild blunting right costophrenic angle. Thoracic aorta is atheromatous. There are chest leads. Bony thorax is intact. There is some spurring in the thoracic spine. IMPRESSION: Pleural diaphragmatic scarring at the right lung base unchanged. No heart failure. Ksenia l heart.
[2019-04-12] MEDS ORDERED: methylPREDNISolone SOD SUCCI 125 MG/2 ML VIAL IV STA (21:30)
[2019-04-12] MEDS ORDERED: IPRATROPIUM-ALBUTEROL 3 ML NEB INHALATION PRN (21:30)
[2019-04-12] MEDS ORDERED: LEVOFLOXACIN 750MG-D5W PMX 750 MG in DEXTROSE/WATER 1 150ML.BAG IVPB STA (21:30)
[2019-04-12] MEDS ORDERED: ACETAMINOPHEN TAB 325 MG TAB PO PRN (22:58)
[2019-04-12] MEDS: ATORVASTATIN 20 MG TAB PO SCH (23:47)
[2019-04-12] MEDS: TAMSULOSIN 0.4 MG CAP.ER.24H PO SCH (23:47)
[2019-04-13] MEDS: methylPREDNISolone SOD SUCCI 125 MG/2 ML VIAL IV SCH ×5 (01:38→23:40)
--- NOTE | 2019-04-13 07:27 | P.CNPUL ---
History of Present Illness Consult date: 04/12/19 Reason for consult: dyspnea, cough, COPD, hypoxemia Chief complaint: Shortness of breath cough productive for one day History of present illness: 84-year-old male who has advanced COPD has been on the breathing treatments and nebulizer treatment regularly he also have A. fib on anticoagulation with Coumadin was in fairly stable state of health one day prior to coming into the hospital started having shortness of breath cough and fever cough was productive of light yellow eventually quickly turned into green came into the hospital for further evaluation denies any chest pain denies any irregular heartbeats no bowel or bladder related problem Review of Systems All systems: negative Past Medical History Past Medical History: Atrial Fibrillation, Heart Failure, Hyperlipidemia, Hypertension, Prostate Disorder Additional Past Medical History / Comment(s): enlarged prostate, macular dengeration left eye, pt states arthritis History of Any Multi-Drug Resistant Organisms: None Reported Past Surgical History: Prostate Surgery Additional Past Surgical History / Comment(s): scar tissue removed from penis; prostate problem,left wrist surgery with hardware. double hernia repair; 2 goiter surgeries 1994; right ankle pin Past Anesthesia/Blood Transfusion Reactions: No Reported Reaction Past Psychological History: No Psychological Hx Reported Smoking Status: Former smoker Past Alcohol Use History: None Reported Past Drug Use History: None Reported - Past Family History Father Family Medical History: Cancer Mother Family Medical History: Cancer Additional Family Medical History / Comment(s): leukemia Brother(s) Family Medical History: Coronary Artery Disease (CAD) Medications and Allergies Home Medications Medication Instructions Recorded Confirmed Type Atorvastatin [Lipitor] 20 mg PO DAILY 01/17/16 04/12/19 History Calcitriol 0.25 mcg PO MOWEFR 01/17/16 04/12/19 History Digoxin [Digitek] 125 mcg PO DAILY 01/17/16 04/12/19 History Ergocalciferol [Vitamin D2 50,000 unit PO Q30D 01/17/16 04/12/19 History (DRISDOL)] Febuxostat [Uloric] 40 mg PO HS 01/17/16 04/12/19 History Furosemide 60 mg PO BID 01/17/16 04/12/19 History Ipratropium/Albuterol Sulfate 1 puff INHALATION RT-QID PRN 01/17/16 04/12/19 History [Combivent Respimat Inhaler] Warfarin Sodium 5 mg PO MOTUTHSA 01/17/16 04/12/19 History Warfarin [Coumadin] 2.5 mg PO SUWEFR 01/17/16 04/12/19 History Ipratropium-Albuterol Nebulize 3 ml INHALATION RT-QID 01/18/16 04/12/19 History [Duoneb 0.5 mg-3 mg/3 ml Soln] Acetaminophen [Tylenol] 500 mg PO QAM 04/08/16 04/12/19 History Ferrous Sulfate [Feosol] 325 mg PO DAILY 04/08/16 04/12/19 History Sennosides/Docusate Sodium 1 tab PO DAILY 04/08/16 04/12/19 History [Docusate Sodium-Senna Tablet] Tamsulosin [Flomax] 0.4 mg PO HS 04/08/16 04/12/19 History Metoprolol Succinate (ER) [Toprol 50 mg PO DAILY 04/12/19 04/12/19 History Xl] Allergies Allergy/AdvReac Type Severity Reaction Status Date / Time codeine Allergy Itching Verified 04/12/19 20:33 Physical Exam Vitals: Vital Signs Temp Pulse Resp BP Pulse Ox 04/12/19 21:56 100.6 F H 92 18 144/82 96 04/12/19 21:24 111 H 04/12/19 21:18 107 H 04/12/19 20:22 20 04/12/19 20:18 102.1 F H 04/12/19 19:49 100.6 F H 122 H 18 124/75 95 Intake and Output 04/12/19 04/12/19 04/13/19 14:59 22:59 06:59 Other: Weight 80.739 kg - Constitutional General appearance: average body habitus, cooperative, disheveled, mild distress - EENT Eyes: anicteric sclerae, EOMI, PERRLA, poor dentition, normal appearance ENT: normal oropharynx Ears: bilateral: normal - Neck Carotids: bilateral: upstroke normal Thyroid: bilateral: normal size - Respiratory Respiratory: bilateral: diminished, wheezing, negative: CTA, dullness, rales, rhonchi - Cardiovascular Rhythm: regular Heart sounds: normal: S1, S2 - Gastrointestinal General gastrointestinal: normal bowel sounds, soft - Neurologic Neurologic: CNII-XII intact - Musculoskeletal Musculoskeletal: gait normal, generalized weakness, strength equal bilaterally - Psychiatric Psychiatric: A&O x's 3, appropriate affect, intact judgment & insight Results - Laboratory Findings CBC and BMP: 04/12/19 20:41 04/12/19 20:41 PT/INR, D-dimer PT 36.6 sec (9.0-12.0) H 04/12/19 20:41 INR 3.8 (<1.2) H 04/12/19 20:41 Abnormal lab findings: Abnormal Labs 04/12/19 04/12/19 04/12/19 20:41 20:41 20:41 WBC 17.5 H Neutrophils # 15.6 H Lymphocytes # 0.8 L PT 36.6 H INR 3.8 H APTT 36.8 H Sodium 136 L Chloride 95 L Carbon Dioxide 31 H BUN 33 H Creatinine 1.42 H Glucose 122 H - Diagnostic Findings Chest x-ray: report reviewed, image reviewed Additional studies: Right lower lobe scarring subtle pneumonia not be excluded Assessment and Plan Assessment: Right lower lobe pneumonia Acute COPD exacerbation Atrial fibrillation Chronic diastolic heart failure Dyslipidemia Hypertension hypertensive cardiovascular disease Obstructive sleep apnea but refuses CPAP Plan: Antibiotics Breathing treatments IV Steroids Continue home medications DVT prophylaxis with Coumadin Further recommendations pending plan of care as per clinical response of patient Time with Patient: Greater than 30
--- NOTE | 2019-04-13 07:29 | P.PN ---
Subjective Progress Note Date: 04/13/19 Principal diagnosis: Right lower lobe pneumonia, acute COPD exacerbation, obstructive sleep apnea and refuses CPAP, atrial fibrillation, dyslipidemia, hypertension hypertensive car diovascular disease, chronic diastolic heart failure 04/13/2019, patient seen and evaluated examined during the rounds feeling slightly better and denies any chest pain still coughing up phlegm sputum studies are not done we'll send it currently on antibiotics breathing treatment and steroids 84-year-old male who has advanced COPD has been on the breathing treatments and nebulizer treatment regularly he also have A. fib on anticoagulation with Coumadin was in fairly stable state of health one day prior to coming into the hospital started having shortness of breath cough and fever cough was productive of light yellow eventually quickly turned into green came into the hospital for further evaluation denies any chest pain denies any irregular heartbeats no bowel or bladder related problem Objective - Vital Signs Vital signs: Vital Signs Temp 97.4 F L 04/13/19 05:19 Pulse 57 L 04/13/19 05:19 Resp 18 04/13/19 05:19 BP 132/75 04/13/19 05:19 Pulse Ox 96 04/13/19 05:19 Intake & Output 04/12/19 04/13/19 04/13/19 18:59 06:59 18:59 Intake Total 340 Output Total 1580 Balance -1240 Weight 80.739 kg Intake: Intake, IV Titration 100 Amount Levofloxacin 750Mg-D5w 100 Pmx 750 mg In Dextrose/ Water 1 150ml.bag @ 100 mls/hr IVPB ONCE STA Rx#: [id number] Oral 240 Output: Urine 1580 Coude 1300 Other: Voiding Method Self-Catheterization # Voids 1 - Exam - Constitutional General appearance: average body habitus, cooperative, disheveled, mild distress - EENT Eyes: anicteric sclerae, EOMI, PERRLA, poor dentition, normal appearance ENT: normal oropharynx Ears: bilateral: normal - Neck Carotids: bilateral: upstroke normal Thyroid: bilateral: normal size - Respiratory Respiratory: bilateral: diminished, wheezing, negative: CTA, dullness, rales, r honchi, slightly better compared to yesterday exam - Cardiovascular Rhythm: regular Heart sounds: normal: S1, S2 - Gastrointestinal General gastrointestinal: normal bowel sounds, soft - Neurologic Neurologic: CNII-XII intact - Musculoskeletal Musculoskeletal: gait normal, generalized weakness, strength equal bilaterally - Psychiatric Psychiatric: A&O x's 3, appropriate affect, intact judgment & insight - Labs CBC & Chem 7: 04/12/19 20:41 04/12/19 20:41 Labs: Abnormal Lab Results - Last 24 Hours (Table) 04/12/19 04/12/19 04/12/19 Range/Units 20:41 20:41 20:41 WBC 17.5 H (3.8-10.6) k/uL Neutrophils # 15.6 H (1.3-7.7) k/uL Lymphocytes # 0.8 L (1.0-4.8) k/uL PT 36.6 H (9.0-12.0) sec INR 3.8 H (<1.2) APTT 36.8 H (22.0-30.0) sec Sodium 136 L (137-145) mmol/L Chloride 95 L (98-107) mmol/L Carbon Dioxide 31 H (22-30) mmol/L BUN 33 H (9-20) mg/dL Creatinine 1.42 H (0.66-1.25) mg/dL Glucose 122 H (74-99) mg/dL Assessment and Plan Assessment: Right lower lobe pneumonia Acute COPD exacerbation Atrial fibrillation Chronic diastolic heart failure Dyslipidemia Hypertension hypertensive cardiovascular disease Obstructive sleep apnea but refuses CPAP Plan: Sputum from culture and Gram stain Antibiotics Breathing treatments IV Steroids Continue home medications DVT prophylaxis with Coumadin Further recommendations pending plan of care as per clinical response of patient
[2019-04-13] MEDS: ATORVASTATIN 20 MG TAB PO SCH (08:50)
[2019-04-13] MEDS: IPRATROPIUM-ALBUTEROL 3 ML NEB INHALATION SCH ×4 (09:11→20:11)
[2019-04-13 11:56] LABS: Basophils % (A) 0 %; Eosinophils % (A) 0 %; HCT 43.1 % (39.0-53.0); HGB 13.6 gm/dL (13.0-17.5); Lymphocytes # (A) 0.7 k/uL (1.0-4.8); Lymphocytes % (A) 3 %; MCH 29.9 pg (25.0-35.0); MCHC 31.6 g/dL (31.0-37.0); MCV 94.6 fL (80.0-100.0); Mean Platelet Volume 7.6; Monocytes # (A) 0.4 k/uL (0-1.0); Monocytes % (A) 2 %; Neutrophils # (A) 22.6 k/uL (1.3-7.7); Neutrophils % (A) 95 %; Platelet Count 304 k/uL (150-450); RBC 4.56 m/uL (4.30-5.90); RDW 14.6 % (11.5-15.5); WBC 23.7 k/uL (3.8-10.6)
[2019-04-13 12:00] LABS: Potassium 3.7 mmol/L (3.5-5.1)
[2019-04-13] MEDS ORDERED: WARFARIN 5 MG TAB PO SCH (15:00)
[2019-04-13 15:18] LABS: INR 3.6 (<1.2); Prothrombin Time 34.8 sec (9.0-12.0)
[2019-04-13] MEDS: METOPROLOL SUCCINATE (ER) 50 MG TAB.ER.24H PO SCH (15:50)
[2019-04-13] MEDS: DIGOXIN 125 MCG TAB PO SCH (15:50)
[2019-04-13] MEDS: FUROSEMIDE 40 MG TAB PO SCH (15:50)
[2019-04-13] MEDS ORDERED: WARFARIN 0.5 MG TAB PO ONE (18:00)
--- NOTE | 2019-04-13 19:53 | P.HPIM ---
History of Present Illness H&P Date: 04/13/19 Chief Complaint: Shortness of breath and fever Patient is a 84-year-old male with a known history of COPD, obstructive sleep apnea and refuses CPAP, chronic atrial fibrillation, hypertension, CHF with diastolic dysfunction initially presents to ER with the complaints of shortness of breath, cough and fever. Patient has been having worsening shortness of breath for the past 2 weeks. Patient is also having cough with greenish to yellow sputum production. Since yesterday patient developed fever and worsening shortness of breath which made him to come to the hospital. Denied any complains of chest pain. No palpitations. No leg swelling. Patient is having generalized weakness and fatigue and malaise. No nausea vomiting or abdominal pain. No diarrhea. Chest x-ray showed pleural diaphragmatic scarring at the right lung base unchanged. No heart failure. Normal heart. T-max 102.1 EKG showed atrial fibrillation with rapid regular rate. WBC 17.3 Review of Systems Constitutional: Patient denies any fever or chills . No generalized weakness or weight loss. Abdomen: Patient denied nausea vomiting and diarrhea and abdominal pain. Cardiovascular: Patient denies any chest pain or short of breath no palpitations. Respiratory: With greenish sputum production and shortness of breath Neurologic: Patient denied any numbness or tingling headache. Musculoskeletal: Patient denies any complaints of joint swelling or deformity. Skin: Negative Psychiatric: Negative Endocrine: No heat or cold intolerance. No recent weight gain. Genitourinary: No dysuria or hematuria. All other 14 point ROS negative except the above Past Medical History Past Medical History: Atrial Fibrillation, Heart Failure, Hyperlipidemia, Hypertension, Prostate Disorder Additional Past Medical History / Comment(s): enlarged prostate, macular dengeration left eye, pt states arthritis History of Any Multi-Drug Resistant Organisms: None Reported Past Surgical History: Prostate Surgery Additional Past Surgical History / Comment(s): scar tissue removed from penis; prostate problem,left wrist surgery with hardware. double hernia repair; 2 goiter surgeries 1994; right ankle pin Past Anesthesia/Blood Transfusion Reactions: No Reported Reaction Past Psychological History: No Psychological Hx Reported Smoking Status: Former smoker Past Alcohol Use History: None Reported Past Drug Use History: None Reported - Past Family History Father Family Medical History: Cancer Mother Family Medical History: Cancer Additional Family Medical History / Comment(s): leukemia Brother(s) Family Medical History: Coronary Artery Disease (CAD) Medications and Allergies Home Medications Medication Instructions Recorded Confirmed Type RX: Atorvastatin [Lipitor] 20 mg PO DAILY 01/17/16 04/12/19 History RX: Calcitriol 0.25 mcg PO MOWEFR 01/17/16 04/12/19 History RX: Digoxin [Digitek] 125 mcg PO DAILY 01/17/16 04/12/19 History RX: Ergocalciferol [Vitamin D2 50,000 unit PO Q30D 01/17/16 04/12/19 History (DRISDOL)] RX: Febuxostat [Uloric] 40 mg PO HS 01/17/16 04/12/19 History RX: Furosemide 60 mg PO BID 01/17/16 04/12/19 History RX: Ipratropium/Albuterol Sulfate 1 puff INHALATION RT-QID PRN 01/17/16 04/12/19 History [Combivent Respimat Inhaler] RX: Warfarin Sodium 5 mg PO MOTUTHSA 01/17/16 04/12/19 History RX: Warfarin [Coumadin] 2.5 mg PO SUWEFR 01/17/16 04/12/19 History RX: Ipratropium-Albuterol Nebulize 3 ml INHALATION RT-QID 01/18/16 04/12/19 Hi story [Duoneb 0.5 mg-3 mg/3 ml Soln] Acetaminophen [Tylenol] 500 mg PO QAM 04/08/16 04/12/19 History Ferrous Sulfate [Feosol] 325 mg PO DAILY 04/08/16 04/12/19 History RX: Tamsulosin [Flomax] 0.4 mg PO HS 04/08/16 04/12/19 History Sennosides/Docusate Sodium 1 tab PO DAILY 04/08/16 04/12/19 History [Docusate Sodium-Senna Tablet] Metoprolol Succinate (ER) [Toprol 50 mg PO DAILY 04/12/19 04/12/19 History Xl] Isosorbide Mononitrate ER [Imdur] 15 mg PO DAILY 04/13/19 04/13/19 History Allergies Allergy/AdvReac Type Severity Reaction Status Date / Time codeine Allergy Itching Verified 04/12/19 20:33 Physical Exam Vitals: Vital Signs Temp Pulse Pulse Resp BP BP Pulse Ox 04/13/19 09:21 80 04/13/19 09:11 76 04/13/19 05:19 97.4 F L 57 L 18 132/75 96 04/12/19 23:00 97.6 F 102 H 18 128/69 94 L 04/12/19 21:56 100.6 F H 92 18 144/82 96 04/12/19 21:24 111 H 04/12/19 21:18 107 H 04/12/19 20:22 20 04/12/19 20:18 102.1 F H 04/12/19 19:49 100.6 F H 122 H 18 124/75 95 Intake and Output 04/12/19 04/13/19 04/13/19 22:59 06:59 14:59 Intake Total 100 240 Output Total 280 1300 Balance -180 -1060 Intake: Intake, IV Titration 100 Amount Levofloxacin 750Mg-D5w 100 Pmx 750 mg In Dextrose/ Water 1 150ml.bag @ 100 mls/hr IVPB ONCE STA Rx#: [id number] Oral 240 Output: Urine 280 1300 Coude 1300 Other: Voiding Method Self-Catheterization Indwelling Catheter # Voids 1 Weight 80.739 kg PHYSICAL EXAMINATION: Patient is lying in the bed comfortably, no acute distress, awake alert and oriented.. HEENT: Normocephalic. Neck is supple. Pupils reactive. Nostrils clear. Oral cavity is moist. Ears reveal no drainage. Neck reveals no JVD, carotid bruits, or thyromegaly. CHEST EXAMINATION: Trachea is central. Symmetrical expansion. Bilateral diminished air entry and diffuse wheezing.. CARDIAC: Normal S1, S2 with no gallops. No murmurs ABDOMEN: Soft. Bowel sounds normal. No organomegaly. No abdominal bruits. Extremities: reveal no edema. No clubbing or cyanosis Neurologically awake, alert, oriented x3 with well-coordinated movements. No focal deficits noted Skin: No rash or skin lesions. Psychiatric: Coperative. Nonsuicidal Musculoskeletal: No joint swelling or deformity. Normal range of motion. Results CBC & Chem 7: 04/13/19 11:17 04/13/19 11:17 Labs: Abnormal Lab Results - Last 24 Hours (Table) 04/12/19 04/12/19 04/12/19 Range/Units 20:41 20:41 20:41 WBC 17.5 H (3.8-10.6) k/uL Neutrophils # 15.6 H (1.3-7.7) k/uL Lymphocytes # 0.8 L (1.0-4.8) k/uL PT 36.6 H (9.0-12.0) sec INR 3.8 H (<1.2) APTT 36.8 H (22.0-30.0) sec Sodium 136 L (137-145) mmol/L Chloride 95 L (98-107) mmol/L Carbon Dioxide 31 H (22-30) mmol/L BUN 33 H (9-20) mg/dL Creatinine 1.42 H (0.66-1.25) mg/dL Glucose 122 H (74-99) mg/dL Thrombosis Risk Factor Assmnt - DVT/VTE Prophylaxis DVT/VTE Prophylaxis: Pharmacologic Prophylaxis ordered - Choose All That Apply Any of the Below Risk Factors Present?: Yes Each Factor Represents 1 point: Abnormal pulmonary function (COPD), Obesity (BMI >25) Each Risk Factor Represents 3 Points: Age 75 years or older Thrombosis Risk Factor Assessment Total Risk Factor Score: 5 Thrombosis Risk Factor Assessment Level: High Risk Assessment and Plan Assessment: Acute COPD exacerbation Purulent tracheobronchitis and possible right lower lobe pneumonia Sepsis secondary to above. Atrial fibrillation with a rapid ventricular rate. Anticoagulation with Coumadin. Chronic CHF with diastolic dysfunction Objective sleep apnea. Patient refuses to use CPAP at home Hypertension Hyperlipidemia Chronic urinary retention. Uses straight catheterization at home. 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 DVT prophylaxis . Already on Coumadin. Plan: Patient be continued on DuoNeb's, IV steroids-methylprednisolone 60 mg every 6 hourly and antibiotics in the form of ceftriaxone and azithromycin. Continue with oxygen therapy and titrate down to room air. Heart rate is controlled now. Continue with home medications. Further recommendations based on the clinical course. Pulmonary is on board. Follow-up blood cultures and sputum culture. Patient was placed on Arevalo catheter. Time with Patient: Greater than 30
[2019-04-13] MEDS: ALLOPURINOL 100 MG TAB PO SCH (20:39)
[2019-04-13] MEDS: TAMSULOSIN 0.4 MG CAP.ER.24H PO SCH (20:39)
[2019-04-13] MEDS ORDERED: LEVOFLOXACIN 750MG-D5W PMX 750 MG in DEXTROSE/WATER 1 150ML.BAG IVPB SCH (22:00)
[2019-04-14] MEDS: methylPREDNISolone SOD SUCCI 125 MG/2 ML VIAL IV SCH ×3 (05:42→17:19)
[2019-04-14 08:31] LABS: Basophils % (A) 0 %; Eosinophils % (A) 0 %; HCT 42.6 % (39.0-53.0); HGB 13.9 gm/dL (13.0-17.5); Lymphocytes # (A) 0.8 k/uL (1.0-4.8); Lymphocytes % (A) 3 %; MCH 30.3 pg (25.0-35.0); MCHC 32.5 g/dL (31.0-37.0); MCV 93.2 fL (80.0-100.0); Mean Platelet Volume 7.7; Monocytes # (A) 0.5 k/uL (0-1.0); Monocytes % (A) 2 %; Neutrophils # (A) 24.4 k/uL (1.3-7.7); Neutrophils % (A) 95 %; Platelet Count 311 k/uL (150-450); RBC 4.58 m/uL (4.30-5.90); RDW 14.7 % (11.5-15.5); WBC 25.9 k/uL (3.8-10.6)
[2019-04-14] MEDS: FUROSEMIDE 40 MG TAB PO SCH ×2 (08:44→16:02)
[2019-04-14] MEDS: CALCITRIOL 0.25 MCG CAP PO SCH (08:44)
[2019-04-14 08:45] LABS: Potassium 3.9 mmol/L (3.5-5.1)
[2019-04-14] MEDS: ATORVASTATIN 20 MG TAB PO SCH (08:45)
[2019-04-14] MEDS: ISOSORBIDE MONONITRATE ER 15 MG TAB PO SCH (08:45)
[2019-04-14] MEDS: DIGOXIN 125 MCG TAB PO SCH (08:45)
[2019-04-14] MEDS: FERROUS SULFATE 325 MG TAB PO SCH (08:45)
[2019-04-14] MEDS: METOPROLOL SUCCINATE (ER) 50 MG TAB.ER.24H PO SCH (08:45)
[2019-04-14 08:46] LABS: INR 2.9 (<1.2); Prothrombin Time 27.6 sec (9.0-12.0)
[2019-04-14] MEDS: ACETAMINOPHEN TAB 500 MG TAB PO SCH (08:46)
[2019-04-14] MEDS: IPRATROPIUM-ALBUTEROL 3 ML NEB INHALATION SCH ×4 (08:53→19:36)
[2019-04-14] MEDS: SENNOSIDES-DOCUSATE SODIUM 1 EACH TAB PO SCH (10:07)
[2019-04-14] MEDS ORDERED: WARFARIN 2.5 MG TAB PO SCH (14:47)
[2019-04-14] MEDS ORDERED: WARFARIN 2.5 MG TAB PO ONE (18:00)
--- NOTE | 2019-04-14 18:58 | P.PN ---
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 fib on anticoagulation with Coumadin was in fairly stable state of health one day prior to coming into the hospital started having shortness of breath cough and fever cough was productive of light yellow eventually quickly turned into green came into the hospital for further evaluation denies any chest pain denies any irregular heartbeats no bowel or bladder related problem Objective - Vital Signs Vital signs: Vital Signs Temp 97.6 F 04/14/19 12:25 Pulse 100 04/14/19 16:29 Resp 17 04/14/19 12:25 BP 123/72 04/14/19 12:25 Pulse Ox 95 04/14/19 12:25 Intake & Output 04/13/19 04/14/19 04/14/19 18:59 06:59 18:59 Intake Total 160 540 700 Output Total 1050 2500 1000 Balance -890 -1960 -300 Intake: IV 160 160 .9@20 160 160 Oral 540 540 Output: Urine 1050 2500 1000 Coude 1700 Other: Voiding Method Indwelling Catheter Indwelling Catheter Indwelling Catheter # Voids 2 - Exam - Constitutional General appearance: average body habitus, cooperative, disheveled, mild distress - EENT Eyes: anicteric sclerae, EOMI, PERRLA, poor dentition, normal appearance ENT: normal oropharynx Ears: bilateral: normal - Neck Carotids: bilateral: upstroke normal Thyroid: bilateral: normal size - Respiratory Respiratory: bilateral: diminished, wheezing, negative: CTA, dullness, rales, rhonchi, slightly better compared to yesterday exam - Cardiovascular Rhythm: regular Heart sounds: normal: S1, S2 - Gastrointestinal General gastrointestinal: normal bowel sounds, soft - Neurologic Neurologic: CNII-XII intact - Musculoskeletal Musculoskeletal: gait normal, generalized weakness, strength equal bilaterally - Psychiatric Psychiatric: A&O x's 3, appropriate affect, intact judgment & insight - Labs CBC & Chem 7: 04/14/19 07:54 04/14/19 07:54 Labs: Abnormal Lab Results - Last 24 Hours (Table) 04/14/19 04/14/19 04/14/19 Range/Units 07:54 07:54 07:54 WBC 25.9 H (3.8-10.6) k/uL Neutrophils # 24.4 H (1.3-7.7) k/uL Lymphocytes # 0.8 L (1.0-4.8) k/uL PT 27.6 H (9.0-12.0) sec INR 2.9 H (<1.2) Carbon Dioxide 31 H (22-30) mmol/L BUN 37 H (9-20) mg/dL Creatinine 1.32 H (0.66-1.25) mg/dL Glucose 178 H (74-99) mg/dL Microbiology - Last 24 Hours (Table) 04/12/19 22:44 Blood Culture - Preliminary Blood No Growth after 24 hours 04/12/19 20:41 Blood Culture - Preliminary Blood No Growth after 24 hours Assessment and Plan Assessment: Right lower lobe pneumonia Acute COPD exacerbation Atrial fibrillation Chronic diastolic heart failure Dyslipidemia Hypertension hypertensive cardiovascular disease Obstructive sleep apnea but refuses CPAP Plan: Sputum from culture and Gram stain Antibiotics Breathing treatments IV Steroids, we'll start tapering it down Continue home medications DVT prophylaxis with Coumadin Further recommendations pending plan of care as per clinical response of patient Time with Patient: Greater than 30
[2019-04-14] MEDS ORDERED: LEVOFLOXACIN 750MG-D5W PMX 750 MG in DEXTROSE/WATER 1 150ML.BAG IVPB SCH (21:00)
[2019-04-14] MEDS ORDERED: LEVOFLOXACIN 750 MG TAB PO SCH (21:00)
[2019-04-14] MEDS: ALLOPURINOL 100 MG TAB PO SCH (21:35)
[2019-04-14] MEDS: TAMSULOSIN 0.4 MG CAP.ER.24H PO SCH (21:36)
[2019-04-14] MEDS: methylPREDNISolone SOD SUCCI 40 MG/ML 1 ML VIAL IV SCH (21:36)
[2019-04-15 07:44] LABS: INR 2.8 (<1.2); Prothrombin Time 26.8 sec (9.0-12.0)
[2019-04-15] MEDS: ATORVASTATIN 20 MG TAB PO SCH (08:12)
[2019-04-15] MEDS: methylPREDNISolone SOD SUCCI 40 MG/ML 1 ML VIAL IV SCH ×2 (08:12→21:18)
[2019-04-15] MEDS: ACETAMINOPHEN TAB 500 MG TAB PO SCH (08:13)
[2019-04-15] MEDS: FUROSEMIDE 40 MG TAB PO SCH ×2 (08:13→15:45)
[2019-04-15] MEDS: FERROUS SULFATE 325 MG TAB PO SCH (08:13)
[2019-04-15] MEDS: SENNOSIDES-DOCUSATE SODIUM 1 EACH TAB PO SCH (08:14)
[2019-04-15] MEDS: METOPROLOL SUCCINATE (ER) 50 MG TAB.ER.24H PO SCH (08:16)
[2019-04-15] MEDS: ISOSORBIDE MONONITRATE ER 15 MG TAB PO SCH (08:16)
[2019-04-15] MEDS: DIGOXIN 125 MCG TAB PO SCH (08:16)
[2019-04-15] MEDS: IPRATROPIUM-ALBUTEROL 3 ML NEB INHALATION SCH ×4 (08:20→19:36)
--- NOTE | 2019-04-15 09:22 | P.PN ---
Subjective Progress Note Date: 04/15/19 Principal diagnosis: Right lower lobe pneumonia, acute COPD exacerbation, obstructive sleep apnea and refuses CPAP, atrial fibrillation, dyslipidemia, hypertension hypertensive car diovascular disease, chronic diastolic heart failure 04/15/2019, patient seen eval examined during the rounds doing well denies any chest pain breathing comfortably, breathing has improved though decreased cough and congestion labs reviewed medications reviewed labs are not done today 04/14/2019, patient being seen evaluated examined during the rounds sitting upright on the bed breathing relatively more comfortably denies any 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 fib on anticoagulation with Coumadin was in fairly stable state of health one day prior to coming into the hospital started having shortness of breath cough and fever cough was productive of light yellow eventually quickly turned into green came into the hospital for further evaluation denies any chest pain denies any irregular heartbeats no bowel or bladder related problem Objective - Vital Signs Vital signs: Vital Signs Temp 97.4 F L 04/15/19 04:48 Pulse 88 04/15/19 08:32 Resp 20 04/15/19 04:48 BP 150/72 04/15/19 04:48 Pulse Ox 94 L 04/15/19 04:48 Intake & Output 04/14/19 04/15/19 04/15/19 18:59 06:59 18:59 Intake Total 700 120 Output Total 1000 3800 Balance -300 -3800 120 Weight 80.5 kg Intake: IV 160 .9@20 160 Oral 540 120 Output: Urine 1000 3800 Other: Voiding Method Indwelling Catheter Indwelling Catheter - Exam - Constitutional General appearance: average body habitus, cooperative, disheveled, mild distress - EENT Eyes: anicteric sclerae, EOMI, PERRLA, poor dentition, normal appearance ENT: normal oropharynx Ears: bilateral: normal - Neck Carotids: bilateral: upstroke normal Thyroid: bilateral: normal size - Respiratory Respiratory: bilateral: diminished, wheezing, negative: CTA, dullness, rales, rhonchi, slightly better compared to yesterday exam - Cardiovascular Rhythm: regular Heart sounds: normal: S1, S2 - Gastrointestinal General gastrointestinal: normal bowel sounds, soft - Neurologic Neurologic: CNII-XII intact - Musculoskeletal Musculoskeletal: gait normal, generalized weakness, strength equal bilaterally - Psychiatric Psychiatric: A&O x's 3, appropriate affect, intact judgment & insight - Labs CBC & Chem 7: 04/14/19 07:54 04/14/19 07:54 Labs: Abnormal Lab Results - Last 24 Hours (Table) 04/15/19 Range/Units 06:17 PT 26.8 H (9.0-12.0) sec INR 2.8 H (<1.2) Microbiology - Last 24 Hours (Table) 04/12/19 22:44 Blood Culture - Preliminary Blood No Growth after 48 hours 04/12/19 20:41 Blood Culture - Preliminary Blood No Growth after 48 hours Assessment and Plan Assessment: Right lower lobe pneumonia Acute COPD exacerbation Atrial fibrillation Chronic diastolic heart failure Dyslipidemia Hypertension hypertensive cardiovascular disease Obstructive sleep apnea but refuses CPAP Plan: Sputum from culture and Gram stain Antibiotics Breathing treatments IV Steroids, we'll start tapering it down Continue home medications DVT prophylaxis with Coumadin Continued do well probably should be ready next 24-48 hours for discharge Further recommendations pending plan of care as per clinical response of patient Time with Patient: Greater than 30
[2019-04-15 11:48] LABS: Basophils % (A) 0 %; Eosinophils % (A) 0 %; HCT 38.9 % (39.0-53.0); HGB 12.7 gm/dL (13.0-17.5); Lymphocytes # (A) 0.6 k/uL (1.0-4.8); Lymphocytes % (A) 3 %; MCH 30.1 pg (25.0-35.0); MCHC 32.6 g/dL (31.0-37.0); MCV 92.4 fL (80.0-100.0); Mean Platelet Volume 7.2; Monocytes # (A) 0.5 k/uL (0-1.0); Monocytes % (A) 2 %; Neutrophils # (A) 20.5 k/uL (1.3-7.7); Neutrophils % (A) 94 %; Platelet Count 333 k/uL (150-450); RBC 4.21 m/uL (4.30-5.90); RDW 14.4 % (11.5-15.5); WBC 21.7 k/uL (3.8-10.6)
[2019-04-15 12:16] LABS: Calcium 8.5 mg/dL (8.4-10.2)
[2019-04-15] MEDS ORDERED: WARFARIN 5 MG TAB PO ONE (18:00)
[2019-04-15] MEDS: ALLOPURINOL 100 MG TAB PO SCH (21:17)
[2019-04-15] MEDS: TAMSULOSIN 0.4 MG CAP.ER.24H PO SCH (21:18)
--- NOTE | 2019-04-16 00:06 | P.PN ---
Subjective Progress Note Date: 04/14/19 Principal diagnosis: Acute COPD exacerbation Pneumonia Patient is a 84-year-old male with a known history of COPD, obstructive sleep apnea and refuses CPAP, chronic atrial fibrillation, hypertension, CHF with diastolic dysfunction initially presents to ER with the complaints of shortness of breath, cough and fever. Patient has been having worsening shortness of breath for the past 2 weeks. Patient is also having cough with greenish to yellow sputum production. Since yesterday patient developed fever and worsening shortness of breath which made him to come to the hospital. Denied any complains of chest pain. No palpitations. No leg swelling. Patient is having generalized weakness and fatigue and malaise. No nausea vomiting or abdominal pain. No diarrhea. Chest x-ray showed pleural diaphragmatic scarring at the right lung base unchanged. No heart failure. Normal heart. T-max 102.1 EKG showed atrial fibrillation with rapid regular rate. WBC 17.3 04/14/2019 Patient says that his breathing status is better. Still having diminished air entry and expiratory wheezing. Significant leukocytosis. Saturating well on nausea cannula. Continued on breathing treatments and IV steroids. No fever no chills. Still having exertional dyspnea. Current medications reviewed. Objective - Vital Signs Vital signs: Vital Signs Temp 97.9 F 04/14/19 20:14 Pulse 102 H 04/14/19 20:14 Resp 20 04/14/19 20:14 BP 132/52 04/14/19 20:14 Pulse Ox 93 L 04/14/19 20:14 Intake & Output 04/14/19 04/14/19 04/15/19 06:59 18:59 06:59 Intake Total 540 700 Output Total 2500 1000 1200 Balance -1960 -300 -1200 Intake: IV 160 .9@20 160 Oral 540 540 Output: Urine 2500 1000 1200 Coude 1700 Other: Voiding Method Indwelling Catheter Indwelling Catheter - Exam PHYSICAL EXAMINATION: Patient is lying in the bed comfortably, no acute distress, awake alert and oriented.. HEENT: Normocephalic. Neck is supple. Pupils reactive. Nostrils clear. Oral cavity is moist. Ears reveal no drainage. Neck reveals no JVD, carotid bruits, or thyromegaly. CHEST EXAMINATION: Trachea is central. Symmetrical expansion. Bilateral diminished air entry and expiratory wheeze. CARDIAC: Normal S1, S2 with no gallops. No murmurs ABDOMEN: Soft. Bowel sounds normal. No organomegaly. No abdominal bruits. Extremities: reveal no edema. No clubbing or cyanosis Neurologically awake, alert, oriented x3 with well-coordinated movements. No focal deficits noted Skin: No rash or skin lesions. Psychiatric: Coperative. Nonsuicidal Musculoskeletal: No joint swelling or deformity. Normal range of motion. - Labs CBC & Chem 7: 04/15/19 11:30 04/15/19 11:30 Labs: Abnormal Lab Results - Last 24 Hours (Table) 04/14/19 04/14/19 04/14/19 Range/Units 07:54 07:54 07:54 WBC 25.9 H (3.8-10.6) k/uL Neutrophils # 24.4 H (1.3-7.7) k/uL Lymphocytes # 0.8 L (1.0-4.8) k/uL PT 27.6 H (9.0-12.0) sec INR 2.9 H (<1.2) Carbon Dioxide 31 H (22-30) mmol/L BUN 37 H (9-20) mg/dL Creatinine 1.32 H (0.66-1.25) mg/dL Glucose 178 H (74-99) mg/dL Microbiology - Last 24 Hours (Table) 04/12/19 22:44 Blood Culture - Preliminary Blood No Growth after 24 hours 04/12/19 20:41 Blood Culture - Preliminary Blood No Growth after 24 hours Assessment and Plan Assessment: Acute COPD exacerbation Purulent tracheobronchitis and possible right lower lobe pneumonia Sepsis secondary to above. Atrial fibrillation with a rapid ventricular rate. Anticoagulation with Coumadin. Chronic CHF with diastolic dysfunction Objective sleep apnea. Patient refuses to use CPAP at home Hypertension Hyperlipidemia Chronic urinary retention. Uses straight catheterization at home. 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 DVT prophylaxis . Already on Coumadin. Plan: Patient be continued on DuoNeb's, IV steroids-methylprednisolone 60 mg every 6 hourly and antibiotics in the form of ceftriaxone and azithromycin. Continue with oxygen therapy and titrate down to room air. Heart rate is controlled now. Continue with home medications. Further recommendations based on the clinical course. Pulmonary is on board. Follow-up blood cultures and sputum culture. Patient was placed on Arevalo catheter. Time with Patient: Greater than 30
--- NOTE | 2019-04-16 00:08 | P.PN ---
Subjective Progress Note Date: 04/15/19 Principal diagnosis: Acute COPD exacerbation Pneumonia Patient is a 84-year-old male with a known history of COPD, obstructive sleep apnea and refuses CPAP, chronic atrial fibrillation, hypertension, CHF with diastolic dysfunction initially presents to ER with the complaints of shortness of breath, cough and fever. Patient has been having worsening shortness of breath for the past 2 weeks. Patient is also having cough with greenish to yellow sputum production. Since yesterday patient developed fever and worsening shortness of breath which made him to come to the hospital. Denied any complains of chest pain. No palpitations. No leg swelling. Patient is having generalized weakness and fatigue and malaise. No nausea vomiting or abdominal pain. No diarrhea. Chest x-ray showed pleural diaphragmatic scarring at the right lung base unchanged. No heart failure. Normal heart. T-max 102.1 EKG showed atrial fibrillation with rapid regular rate. WBC 17.3 04/14/2019 Patient says that his breathing status is better. Still having diminished air entry and expiratory wheezing. Significant leukocytosis. Saturating well on nausea cannula. Continued on breathing treatments and IV steroids. No fever no chills. Still having exertional dyspnea. 04/15/2019 Patient's breathing status is better not at baseline. Wheezing improved. IV steroids dose decreased to 40 mg every 8 hourly. Patient is being continued on antibiotics. Oxygen with nausea cannula. Leukocytosis is improving now. Anticipate discharge in next 24 hours. Current medications reviewed. Objective - Vital Signs Vital signs: Vital Signs Temp 97.7 F 04/15/19 13:00 Pulse 100 04/15/19 19:51 Resp 18 04/15/19 13:00 BP 156/79 04/15/19 13:00 Pulse Ox 97 04/15/19 19:37 Intake & Output 04/15/19 04/15/19 04/16/19 06:59 18:59 06:59 Intake Total 120 Output Total 3800 1525 Balance -3800 -1405 Weight 80.5 kg Intake: Oral 120 Output: Urine 3800 1525 Coude 1000 Other: Voiding Method Indwelling Catheter Indwelling Catheter # Voids 3 - Exam PHYSICAL EXAMINATION: Patient is lying in the bed comfortably, no acute distress, awake alert and oriented.. HEENT: Normocephalic. Neck is supple. Pupils reactive. Nostrils clear. Oral cavity is moist. Ears reveal no drainage. Neck reveals no JVD, carotid bruits, or thyromegaly. CHEST EXAMINATION: Trachea is central. Symmetrical expansion. Improved air entry and scattered rhonchi and minimal expiratory wheeze.. CARDIAC: Normal S1, S2 with no gallops. No murmurs ABDOMEN: Soft. Bowel sounds normal. No organomegaly. No abdominal bruits. Extremities: reveal no edema. No clubbing or cyanosis Neurologically awake, alert, oriented x3 with well-coordinated movements. No focal deficits noted Skin: No rash or skin lesions. Psychiatric: Coperative. Nonsuicidal Musculoskeletal: No joint swelling or deformity. Normal range of motion. - Labs CBC & Chem 7: 04/15/19 11:30 04/15/19 11:30 Labs: Abnormal Lab Results - Last 24 Hours (Table) 04/15/19 04/15/19 04/15/19 Range/Units 06:17 11:30 11:30 WBC 21.7 H (3.8-10.6) k/uL RBC 4.21 L (4.30-5.90) m/uL Hgb 12.7 L (13.0-17.5) gm/dL Hct 38.9 L (39.0-53.0) % Neutrophils # 20.5 H (1.3-7.7) k/uL Lymphocytes # 0.6 L (1.0-4.8) k/uL PT 26.8 H (9.0-12.0) sec INR 2.8 H (<1.2) Carbon Dioxide 31 H (22-30) mmol/L BUN 43 H (9-20) mg/dL Glucose 119 H (74-99) mg/dL Microbiology - Last 24 Hours (Table) 04/12/19 22:44 Blood Culture - Preliminary Blood No Growth after 48 hours 04/12/19 20:41 Blood Culture - Preliminary Blood No Growth after 48 hours Assessment and Plan Assessment: Acute COPD exacerbation Purulent tracheobronchitis and possible right lower lobe pneumonia Sepsis secondary to above. Atrial fibrillation with a rapid ventricular rate. Anticoagulation with Coumadin. Chronic CHF with diastolic dysfunction Objective sleep apnea. Patient refuses to use CPAP at home Hypertension Hyperlipidemia Chronic urinary retention. Uses straight catheterization at home. 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 DVT prophylaxis . Already on Coumadin. Plan: Patient be continued on DuoNeb's, IV steroids-methylprednisolone 60 mg every 6 hourly and antibiotics in the form of ceftriaxone and azithromycin. Continue with oxygen therapy and titrate down to room air. Heart rate is controlled now. Continue with home medications. Further recommendations based on the clinical course. Pulmonary is on board. Follow-up blood cultures and sputum culture. Patient was placed on Arevalo catheter. Time with Patient: Greater than 30
[2019-04-16] MEDS: FUROSEMIDE 40 MG TAB PO SCH ×2 (08:21→15:33)
[2019-04-16] MEDS: ACETAMINOPHEN TAB 500 MG TAB PO SCH (08:22)
[2019-04-16] MEDS: FERROUS SULFATE 325 MG TAB PO SCH (08:25)
[2019-04-16] MEDS: CALCITRIOL 0.25 MCG CAP PO SCH (08:25)
[2019-04-16] MEDS: SENNOSIDES-DOCUSATE SODIUM 1 EACH TAB PO SCH (08:25)
[2019-04-16] MEDS: ISOSORBIDE MONONITRATE ER 15 MG TAB PO SCH (08:25)
[2019-04-16] MEDS: DIGOXIN 125 MCG TAB PO SCH (08:26)
[2019-04-16] MEDS: ATORVASTATIN 20 MG TAB PO SCH (08:26)
[2019-04-16] MEDS: methylPREDNISolone SOD SUCCI 40 MG/ML 1 ML VIAL IV SCH (08:27)
[2019-04-16] MEDS: METOPROLOL SUCCINATE (ER) 50 MG TAB.ER.24H PO SCH (08:27)
[2019-04-16] MEDS: IPRATROPIUM-ALBUTEROL 3 ML NEB INHALATION SCH ×3 (08:28→15:50)
[2019-04-16 09:31] LABS: INR 2.3 (<1.2); Prothrombin Time 22.2 sec (9.0-12.0)
[2019-04-16 12:28] VITALS: BP 135/66; RESP 17; TEMP 97.9
[2019-04-16 13:14] LABS: Basophils % (A) 0 %; Eosinophils % (A) 0 %; HCT 46.5 % (39.0-53.0); HGB 14.9 gm/dL (13.0-17.5); Lymphocytes # (A) 1.2 k/uL (1.0-4.8); Lymphocytes % (A) 5 %; MCH 30.3 pg (25.0-35.0); MCV 94.8 fL (80.0-100.0); Mean Platelet Volume 7.9; Monocytes # (A) 0.7 k/uL (0-1.0); Monocytes % (A) 3 %; Neutrophils # (A) 20.5 k/uL (1.3-7.7); Neutrophils % (A) 91 %; Platelet Count 409 k/uL (150-450); RDW 14.1 % (11.5-15.5); WBC 22.6 k/uL (3.8-10.6)
[2019-04-16 15:30] VITALS: PULSE 80
--- NOTE | 2019-04-16 15:31 | P.PN ---
Subjective Progress Note Date: 04/16/19 Principal diagnosis: Right lower lobe pneumonia, acute COPD exacerbation, obstructive sleep apnea and refuses CPAP, atrial fibrillation, dyslipidemia, hypertension hypertensive car diovascular disease, chronic diastolic heart failure 04/16/2019, patient seen eval examined during the rounds he is breathing better cough congestion has improved able to get up and move around, care plan discussed with primary service agree with discharge planning on oral antibiotics and tapering steroids 04/15/2019, patient seen eval examined during the rounds doing well denies any chest pain breathing comfortably, breathing has improved though decreased cough and congestion labs reviewed medications reviewed labs are not done today 04/14/2019, patient being seen evaluated examined during the rounds sitting upright on the bed breathing relatively more comfortably denies any 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 fib on anticoagulation with Coumadin was in fairly stable state of health one day prior to coming into the hospital started having shortness of breath cough and fever cough was productive of light yellow eventually quickly turned into green came into the hospital for further evaluation denies any chest pain denies any irregular heartbeats no bowel or bladder related problem Objective - Vital Signs Vital signs: Vital Signs Temp 97.9 F 04/16/19 12:12 Pulse 78 04/16/19 12:12 Resp 17 04/16/19 12:12 BP 135/66 04/16/19 12:12 Pulse Ox 93 L 04/16/19 12:12 Intake & Output 04/15/19 04/16/19 04/16/19 18:59 06:59 18:59 Intake Total 120 1310 720 Output Total 1525 4800 1800 Balance -1405 -3490 -1080 Weight 80.5 kg 79.5 kg Intake: IV 230 .9@20 230 Oral 120 1080 720 Output: Urine 1525 4800 1800 Coude 1000 3500 Other: Voiding Method Indwelling Catheter Indwelling Catheter Indwelling Catheter # Voids 3 1 1 - Exam - Constitutional General appearance: average body habitus, cooperative, disheveled, mild distress - EENT Eyes: anicteric sclerae, EOMI, PERRLA, poor dentition, normal appearance ENT: normal oropharynx Ears: bilateral: normal - Neck Carotids: bilateral: upstroke normal Thyroid: bilateral: normal size - Respiratory Respiratory: bilateral: diminished, wheezing, negative: CTA, dullness, rales, rhonchi, slightly better compared to yesterday exam - Cardiovascular Rhythm: regular Heart sounds: normal: S1, S2 - Gastrointestinal General gastrointestinal: normal bowel sounds, soft - Neurologic Neurologic: CNII-XII intact - Musculoskeletal Musculoskeletal: gait normal, generalized weakness, strength equal bilaterally - Psychiatric Psychiatric: A&O x's 3, appropriate affect, intact judgment & insight - Labs CBC & Chem 7: 04/16/19 08:54 04/15/19 11:30 Labs: Abnormal Lab Results - Last 24 Hours (Table) 04/16/19 04/16/19 Range/Units 08:54 08:54 WBC 22.6 H (3.8-10.6) k/uL Neutrophils # 20.5 H (1.3-7.7) k/uL PT 22.2 H (9.0-12.0) sec INR 2.3 H (<1.2) Microbiology - Last 24 Hours (Table) 04/15/19 19:49 Gram Stain - Preliminary Sputum 04/12/19 22:44 Blood Culture - Preliminary Blood No Growth after 72 hours 04/12/19 20:41 Blood Culture - Preliminary Blood No Growth after 72 hours Assessment and Plan Assessment: Right lower lobe pneumonia Acute COPD exacerbation Atrial fibrillation Chronic diastolic heart failure Dyslipidemia Hypertension hypertensive cardiovascular disease Obstructive sleep apnea but refuses CPAP Plan: Sputum from culture and Gram stain sputum reviewed no bacterial predominance has been seen Antibiotics Breathing treatments IV Steroids, we'll start tapering it down Continue home medications DVT prophylaxis with Coumadin Continued do well probably should be ready for follow up on outpatient basis Further recommendations pending plan of care as per clinical response of patient Time with Patient: Greater than 30
[2019-04-16] MEDS ORDERED: WARFARIN 2.5 MG TAB PO ONE (18:00)
[2019-04-26] MEDS ORDERED: ERGOCALCIFEROL 50,000 UNIT CAP PO SCH (09:00)
== END 2019-04-16 15:55 | disposition home or self-care (01) | DRG 871 ==
LOC: EC 19:27 → 3NMEDONC 21:31
PROVIDERS: ADMIT Internal Medicine; ATTEND Internal Medicine
DX: A41.9 Sepsis, unspecified organism (principal); J18.1 Lobar pneumonia, unspecified organism; J44.1 Chronic obstructive pulmonary disease with (acute) exacerbation; I50.32 Chronic diastolic (congestive) heart failure; G47.33 Obstructive sleep apnea (adult) (pediatric); I11.0 Hypertensive heart disease with heart failure; I48.2 Chronic atrial fibrillation; E78.5 Hyperlipidemia, unspecified; H35.30 Unspecified macular degeneration; E66.9 Obesity, unspecified; Z98.890 Other specified postprocedural states; Z79.01 Long term (current) use of anticoagulants; Z79.899 Other long term (current) drug therapy; Z88.5 Allergy status to narcotic agent; Z87.891 Personal history of nicotine dependence; Z82.49 Family history of ischemic heart disease and other diseases of the circulatory system; Z80.6 Family history of leukemia; Z68.26 Body mass index [BMI] 26.0-26.9, adult
CPT/HCPCS: 36415; 71046; 80048; 80053; 83605; 85025; 85610; 85730; 87040; 87070; 87077; 87186; 87205; 93005; 94640; 94760; 96374; 99285

== ENCOUNTER → 2019-04-12 | Outpatient (CLI) | payer MEDICARE ==
--- NOTE | 2019-04-12 10:09 | XR ---
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 FINDINGS: CHEST: Heart mildly enlarged. Mild patchy right basilar opacity. No focal rib lesion or clavicular lesion se en. Cervical spine: Moderate endplate spondylosis. No lytic lesion identified. Calvarium: Scattered small rounded lucencies suggest arachnoid granulations especially given clusteri ng along the sagittal midline. No definite punched out lytic lesion. Thoracic spine: Moderate spondylotic change with accentuated midthoracic kyphosis. Vertebral body heights are preserv ed. Humeri: No punched out lytic lesion approximately 3 subtle rounded lucencies within the mid shaft of the righ t humerus. No endosteal scalloping seen. Lumbar spine: 1.9 and 1.4 cm calcifications right upper abdomen could represent gallstones or renal calculi with th e former being favored. Moderate multilevel degenerative change with hypertrophic facet arthropathy a nd grade 1 anterolisthesis at L3-L4 and L4-L5. No vertebral compression collapse. No lytic destructio n. Pelvis: Overlying bowel gas limits assessment of the iliac wings. Moderate degenerative change at both hips. Femurs: No punched out lytic lesion or endosteal scalloping IMPRESSION: 1. 3 subtle rounded lucencies within the mid shaft of the right humerus may relate to changes of oste openia. Further clinical correlation and appropriate follow-up to exclude early myelomatous involveme nt. 2. Additional small rounded lucencies along the calvarium. Positioning of these lucencies along the s agittal midline suggests arachnoid granulations rather than myelomatous disease. 3. Otherwise, moderate spondylotic change throughout the spine. Mild patchy right basilar atelectasis versus early infiltrate. Clinically correlate.
== END | disposition home or self-care (01) ==
LOC: RADXRMAIN 08:52
PROVIDERS: ATTEND Internal Medicine Hematology & Oncology
DX: D47.2 Monoclonal gammopathy (principal); J44.9 Chronic obstructive pulmonary disease, unspecified; I10 Essential (primary) hypertension
CPT/HCPCS: 77075

== ENCOUNTER 2019-05-13 09:26 | Inpatient (IN) | payer MEDICARE ==
[2019-05-13] MEDS ORDERED: SODIUM CHLORIDE 0.9% 500 ML 500 ML IV STA (09:50)
--- NOTE | 2019-05-13 09:53 | ED ---
General Adult HPI - General Chief complaint: Weakness Stated complaint: light headed Time Seen by Provider: 05/13/19 09:30 Source: patient, RN notes reviewed Mode of arrival: wheelchair Limitations: no limitations - History of Present Illness Initial comments: This is an 84-year-old male who presents emergency Department with a past medical history significant for COPD and congestive heart failure. Patient comes in today complaining that he has become weaker and infected 5:30 this morning was so weak that he slowly fell to the ground. Patient denies any injury. Patient states he did bump the right side of his head but he does not have a headache there is no marked there is no bleeding he was not days he did not lose consciousness. Patient states he has been getting weaker since February when he was discharged from the hospital but lately it seems even worse. Patient states it started generalized weakness and there is no focal deficit. Patient has had no new pain. Patient denies headache patient denies numbness weakness. Patient denies lightheadedness or dizziness. Patient denies any chest pain palpitations difficulty breathing shortness of breath. Patient denies abdominal pain patient denies nausea vomiting diarrhea. Patient denies any recent fever chills or cough. - Related Data Home Medications Medication Instructions Recorded Confirmed Atorvastatin [Lipitor] 20 mg PO DAILY 01/17/16 05/13/19 Digoxin [Digitek] 125 mcg PO DAILY 01/17/16 05/13/19 Ergocalciferol [Vitamin D2 50,000 unit PO Q30D 01/17/16 05/13/19 (DRISDOL)] Furosemide 60 mg PO BID 01/17/16 05/13/19 Ipratropium/Albuterol Sulfate 1 puff INHALATION RT-QID PRN 01/17/16 05/13/19 [Combivent Respimat Inhaler] Ipratropium-Albuterol Nebulize 3 ml INHALATION RT-QID 01/18/16 05/13/19 [Duoneb 0.5 mg-3 mg/3 ml Soln] Acetaminophen [Tylenol] 500 mg PO QAM 04/08/16 05/13/19 Ferrous Sulfate [Iron (65 MG 325 mg PO DAILY 04/08/16 05/13/19 Elemental)] Sennosides/Docusate Sodium [Hailey 1 tab PO DAILY 06/13/16 07/18/19 Colace] Tamsulosin [Flomax] 0.4 mg PO HS 04/08/16 05/13/19 Metoprolol Succinate (ER) [Toprol 50 mg PO DAILY 04/12/19 05/13/19 XL] Isosorbide Mononitrate ER [Imdur] 15 mg PO DAILY 04/13/19 05/13/19 Calcitriol 0.25 mcg PO MOTUWETH 05/13/19 05/13/19 Calcitriol 0.5 mcg PO SUFRSA 05/13/19 05/13/19 Warfarin [Coumadin] 2.5 mg PO SUTU 05/13/19 05/13/19 Warfarin [Coumadin] 5 mg PO MOWETHFRSA 05/13/19 05/13/19 Allergies Allergy/AdvReac Type Severity Reaction Status Date / Time codeine Allergy Itching Verified 05/13/19 09:31 Review of Systems ROS Statement: Those systems with pertinent positive or pertinent negative responses have been documented in the HPI. ROS Other: All systems not noted in ROS Statement are negative. Past Medical History Past Medical History: Atrial Fibrillation, Heart Failure, COPD, Hyperlipidemia, Hypertension, Prostate Disorder Additional Past Medical History / Comment(s): enlarged prostate, macular dengeration left eye, pt states arthritis History of Any Multi-Drug Resistant Organisms: None Reported Past Surgical History: Prostate Surgery Additional Past Surgical History / Comment(s): scar tissue removed from penis; prostate problem,left wrist surgery with hardware. double hernia repair; 2 goiter surgeries 1994; right ankle pin Past Anesthesia/Blood Transfusion Reactions: No Reported Reaction Past Psychological History: No Psychological Hx Reported Smoking Status: Former smoker Past Alcohol Use History: None Reported Past Drug Use History: None Reported - Past Family History Father Family Medical History: Cancer Mother Family Medical History: Cancer Additional Family Medical History / Comment(s): leukemia Brother(s) Family Medical History: Coronary Artery Disease (CAD) General Exam - General Exam Comments Initial Comments: GENERAL: Patient is well-developed and well-nourished. Patient is nontoxic and well- hydrated and is in mild distress. ENT: Neck is soft and supple. No significant lymphadenopathy is noted. Oropharynx is clear. Moist mucous membranes. Neck has full range of motion without eliciting any pain. EYES: The sclera were anicteric and conjunctiva were pink and moist. Extraocular movements were intact and pupils were equal round and reactive to light. Eyelids were unremarkable. PULMONARY: Unlabored respirations. Good breath sounds bilaterally. No audible rales rhonchi or wheezing was noted. CARDIOVASCULAR: There is a regular rate and rhythm without any murmurs gallops or rubs. ABDOMEN: Soft and nontender with normal bowel sounds. SKIN: Skin is clear with no lesions or rashes and otherwise unremarkable. NEUROLOGIC: Patient is alert and oriented x3. Cranial nerves II through XII are grossly intact. Motor and sensory are also intact. Normal speech, volume and content. Symmetrical smile. MUSCULOSKELETAL: Normal extremities with adequate strength and full range of motion. LYMPHATICS: No significant lymphadenopathy is noted PSYCHIATRIC: Normal psychiatric evaluation. Limitations: no limitations Course Vital Signs 05/13/19 05/13/19 05/13/19 09:27 10:34 11:00 Temperature 97.4 F L Pulse Rate 103 H 87 Pulse Rate [ 94 Sitting] Pulse Rate [ 100 Standing] Pulse Rate [ 104 H Supine] Respiratory 18 20 Rate Blood Pressure 112/71 137/93 Blood Pressure 93/67 [Sitting] Blood Pressure 83/57 [Standing] Blood Pressure 120/92 [Supine] O2 Sat by Pulse 97 98 Oximetry Medical Decision Making - Medical Decision Making EKG shows atrial fibrillation at a rate of 84 bpm QRS is 82 QT interval 354 QTC is 418 per. Patient's EKG shows no ST segment elevation or depression. Chest x-ray shows no acute abnormality. Patient was orthostatic positive when standing. Patient was dizzy when standing his blood pressure dropped a 57. I went back into reevaluate the patient is feeling normal as he lies back. Patient's potassium was slightly low his creatinine was elevated and his troponin was mildly elevated. I spoke with Dr. Hodges he agreed to admit the patient admitted the patient wrote admitting orders. I read repeat troponins. At no time was the patient experiencing any difficulty breathing or chest pain. - Lab Data Result diagrams: 05/13/19 10:07 05/13/19 10:07 Lab Results 05/13/19 05/13/19 05/13/19 Range/Units 10:07 10:07 10:07 WBC 9.2 (3.8-10.6) k/uL RBC 4.62 (4.30-5.90) m/uL Hgb 13.9 (13.0-17.5) gm/dL Hct 41.7 (39.0-53.0) % MCV 90.4 (80.0-100.0) fL MCH 30.1 (25.0-35.0) pg MCHC 33.3 (31.0-37.0) g/dL RDW 14.6 (11.5-15.5) % Plt Count 294 (150-450) k/uL Neutrophils % 74 % Lymphocytes % 15 % Monocytes % 7 % Eosinophils % 1 % Basophils % 0 % Neutrophils # 6.8 (1.3-7.7) k/uL Lymphocytes # 1.4 (1.0-4.8) k/uL Monocytes # 0.6 (0-1.0) k/uL Eosinophils # 0.1 (0-0.7) k/uL Basophils # 0.0 (0-0.2) k/uL PT (9.0-12.0) sec INR (<1.2) APTT (22.0-30.0) sec Sodium 132 L (137-145) mmol/L Potassium 3.4 L (3.5-5.1) mmol/L Chloride 85 L (98-107) mmol/L Carbon Dioxide 35 H (22-30) mmol/L Anion Gap 12 mmol/L BUN 50 H (9-20) mg/dL Creatinine 1.99 H (0.66-1.25) mg/dL Est GFR (CKD-EPI)AfAm 35 (>60 ml/min/1.73 sqM) Est GFR (CKD-EPI)NonAf 30 (>60 ml/min/1.73 sqM) Glucose 126 H (74-99) mg/dL Plasma Lactic Acid Elias 1.2 (0.7-2.0) mmol/L Calcium 9.3 (8.4-10.2) mg/dL Magnesium 1.9 (1.6-2.3) mg/dL Total Bilirubin 1.3 (0.2-1.3) mg/dL AST 51 (17-59) U/L ALT 32 (21-72) U/L Alkaline Phosphatase 115 (38-126) U/L Troponin I (0.000-0.034) ng/mL Total Protein 7.1 (6.3-8.2) g/dL Albumin 4.0 (3.5-5.0) g/dL Urine Color Urine Appearance (Clear) Urine pH (5.0-8.0) Ur Specific [place] (1.001-1.035) Urine Protein (Negative) Urine Glucose (UA) (Negative) Urine Ketones (Negative) Urine Blood (Negative) Urine Nitrite (Negative) Urine Bilirubin (Negative) Urine Urobilinogen (<2.0) mg/dL Ur Leukocyte Esterase (Negative) 05/13/19 05/13/19 05/13/19 Range/Units 10:07 10:07 11:35 WBC (3.8-10.6) k/uL RBC (4.30-5.90) m/uL Hgb (13.0-17.5) gm/dL Hct (39.0-53.0) % MCV (80.0-100.0) fL MCH (25.0-35.0) pg MCHC (31.0-37.0) g/dL RDW (11.5-15.5) % Plt Count (150-450) k/uL Neutrophils % % Lymphocytes % % Monocytes % % Eosinophils % % Basophils % % Neutrophils # (1.3-7.7) k/uL Lymphocytes # (1.0-4.8) k/uL Monocytes # (0-1.0) k/uL Eosinophils # (0-0.7) k/uL Basophils # (0-0.2) k/uL PT 50.6 H (9.0-12.0) sec INR 5.2 H* (<1.2) APTT 46.5 H (22.0-30.0) sec Sodium (137-145) mmol/L Potassium (3.5-5.1) mmol/L Chloride (98-107) mmol/L Carbon Dioxide (22-30) mmol/L Anion Gap mmol/L BUN (9-20) mg/dL Creatinine (0.66-1.25) mg/dL Est GFR (CKD-EPI)AfAm (>60 ml/min/1.73 sqM) Est GFR (CKD-EPI)NonAf (>60 ml/min/1.73 sqM) Glucose (74-99) mg/dL Plasma Lactic Acid Elias (0.7-2.0) mmol/L Calcium (8.4-10.2) mg/dL Magnesium (1.6-2.3) mg/dL Total Bilirubin (0.2-1.3) mg/dL AST (17-59) U/L ALT (21-72) U/L Alkaline Phosphatase (38-126) U/L Troponin I 0.050 H* (0.000-0.034) ng/mL Total Protein (6.3-8.2) g/dL Albumin (3.5-5.0) g/dL Urine Color Light Yellow Urine Appearance Clear (Clear) Urine pH 6.5 (5.0-8.0) Ur Specific [place] 1.006 (1.001-1.035) Urine Protein Negative (Negative) Urine Glucose (UA) Negative (Negative) Urine Ketones Negative (Negative) Urine Blood Negative (Negative) Urine Nitrite Negative (Negative) Urine Bilirubin Negative (Negative) Urine Urobilinogen <2.0 (<2.0) mg/dL Ur Leukocyte Esterase Negative (Negative) Disposition Clinical Impression: Orthostatic hypotension, Hypokalemia, Elevated troponin, Coagulopathy Disposition: ADMITTED IP TO THIS [facility] Referrals: Ladarius Hodges DO [Primary Care Provider] - 1-2 days Time of Disposition: 12:06
[2019-05-13 10:23] LABS: Basophils % (A) 0 %; Eosinophils # (A) 0.1 k/uL (0-0.7); Eosinophils % (A) 1 %; HCT 41.7 % (39.0-53.0); HGB 13.9 gm/dL (13.0-17.5); Lymphocytes # (A) 1.4 k/uL (1.0-4.8); Lymphocytes % (A) 15 %; MCH 30.1 pg (25.0-35.0); MCHC 33.3 g/dL (31.0-37.0); MCV 90.4 fL (80.0-100.0); Mean Platelet Volume 7.1; Monocytes # (A) 0.6 k/uL (0-1.0); Monocytes % (A) 7 %; Neutrophils # (A) 6.8 k/uL (1.3-7.7); Neutrophils % (A) 74 %; Platelet Count 294 k/uL (150-450); RBC 4.62 m/uL (4.30-5.90); RDW 14.6 % (11.5-15.5); WBC 9.2 k/uL (3.8-10.6)
--- NOTE | 2019-05-13 10:23 | XR ---
EXAMINATION TYPE: XR chest 2V DATE OF EXAM: 05/13/2019 COMPARISON: Chest x-ray April 12, 2019 HISTORY: Lightheadedness and hypotension with weakness. TECHNIQUE: Frontal and lateral views of the chest are obtained. FINDINGS: Overlying EKG leads are seen. There is chronic parenchyma change without suspicious focal a ir space opacity, new pleural effusion, or pneumothorax seen. Stable small right pleural effusion or pleural thickening. The cardiac silhouette size is is stable and mildly enlarged with atheroscleroti c aorta. Degenerative change bilateral shoulders is redemonstrated. IMPRESSION: Chronic parenchymal changes and mild cardiomegaly with stable small right pleural effusi on or pleural thickening without new acute pulmonary process. No significant change from most recent chest x-ray.
[2019-05-13 10:34] LABS: Calcium 9.3 mg/dL (8.4-10.2); Magnesium 1.9 mg/dL (1.6-2.3); Potassium 3.4 mmol/L (3.5-5.1); Total Bilirubin 1.3 mg/dL (0.2-1.3); Total Protein 7.1 g/dL (6.3-8.2)
[2019-05-13 10:41] LABS: Partial Thromboplastin Time 46.5 sec (22.0-30.0)
[2019-05-13 10:42] LABS: Prothrombin Time 50.6 sec (9.0-12.0)
[2019-05-13 10:50] LABS: INR 5.2 (<1.2)
[2019-05-13 11:54] LABS: Appearance,Urine Clear (Clear); Bilirubin,Urine Negative (Negative); Blood,Urine Negative (Negative); Color,Urine Light Yellow; Glucose,Urine (UA) Negative (Negative); Ketones,Urine Negative (Negative); Leukocyte Esterase,Urine Negative (Negative); Nitrite,Urine Negative (Negative); PH, Urine 6.5 (5.0-8.0); Protein,Urine Negative (Negative); Specific Gravity,Urine 1.006 (1.001-1.035); Urobilinogen,Urine <2.0 mg/dL (<2.0)
[2019-05-13] MEDS ORDERED: SODIUM CHLORIDE 0.9% 1,000 ML IV ONE (12:10)
[2019-05-13] MEDS ORDERED: IPRATROPIUM-ALBUTEROL 3 ML NEB INHALATION STA (13:02)
[2019-05-13] MEDS ORDERED: FUROSEMIDE 20 MG TAB PO SCH (16:00)
[2019-05-13] MEDS ORDERED: NON-FORMULARY DRUG (Ipratropium/Albuterol Sulfate [Combivent Respimat Inhaler] 1 PUFF) INHALATION PRN (22:18)
[2019-05-13] MEDS ORDERED: Potassium Replacement Protocol 1 EACH MISC MISCELLANE PRN (22:21)
[2019-05-13] MEDS: POTASSIUM CHLORIDE ER 20 MEQ TAB.ER PO SCH (23:49)
[2019-05-14] MEDS: POTASSIUM CHLORIDE ER 20 MEQ TAB.ER PO SCH (01:43)
[2019-05-14] MEDS: DIGOXIN 125 MCG TAB PO SCH (05:58)
[2019-05-14] MEDS: METOPROLOL SUCCINATE (ER) 50 MG TAB.ER.24H PO SCH (05:58)
[2019-05-14 07:28] LABS: Calcium 9.2 mg/dL (8.4-10.2); Magnesium 1.7 mg/dL (1.6-2.3); Potassium 3.5 mmol/L (3.5-5.1)
[2019-05-14] MEDS: IPRATROPIUM-ALBUTEROL 3 ML NEB INHALATION SCH ×4 (07:41→20:02)
[2019-05-14] MEDS ORDERED: MAGNESIUM SULFATE-D5W PMX 1 GM in DEXTROSE/WATER 1 100ML.BAG IVPB ONE (08:16)
--- NOTE | 2019-05-14 08:17 | P.NPCON ---
History of Present Illness - Reason for Consult acute renal failure, chronic renal failure - History of Present Illness Reason for consultation: Acute kidney injury on chronic any disease History of present illness: Patient is a 84-year-old male seen in renal consultation for acute kidney injury on chronic kidney disease. Patient has chronic kidney disease stage III with baseline creatinine in the range of 1.2-1.5 secondary to nephrosclerosis and cardiorenal syndrome. Patient presented to the hospital with generalized weakness which has been worsening over the last few days. Patient since yesterd ay he felt so weak that he fell. He denies losing consciousness. No vomiting or diarrhea. Oral intake has been fair. He admits to good urine output. Denies use of nonsteroidals. No history of diabetes. Patient is maintained on metoprolol as well as Lasix 60 mg orally twice daily at home. Denies any edema at this time. No active chest pain or shortness of breath. Blood pressure is not improved. He did receive 1 L normal saline bolus in the ER and is currently maintained on normal saline at 75 mL an hour. Vital signs are stable. General: The patient appeared well nourished and normally developed. HEENT: Head exam is unremarkable. Neck is without jugular venous distension. LUNGS: Lungs are clear to auscultation and percussion. Breath sounds decreased. HEART: Rate and Rhythm are regular. First and second heart sounds normal. No murmurs, rubs or gallops. ABDOMEN: Abdominal exam reveals normal bowel sounds. Non-tender and non- distended. No evidence of peritonitis. EXTREMITITES: No clubbing, cyanosis, or edema. Past Medical History Past Medical History: Atrial Fibrillation, Heart Failure, COPD, Eye Disorder, Hyperlipidemia, Hypertension, Osteoarthritis (OA), Prostate Disorder, Renal Disease, Sleep Apnea/CPAP/BIPAP Additional Past Medical History / Comment(s): Pt recently admitted to [facility] on 04/12/19 with acute exacerbation COPD/purulent tracheobronchitis/possible right lower lobe pneumonia/sepsis and afib with RVR. Other hx: Chronic urinary retention/self caths 4 times a day, UTIs, CKD stage III, BPH, hyperuricemia, chronic chf, JUAN-refuses CPap, arthritis bilateral hands/knees, L eye macular degeneration, vitamin D deficiency. History of Any Multi-Drug Resistant Organisms: None Reported Past Surgical History: Hernia Repair, Orthopedic Surgery, Prostate Surgery Additional Past Surgical History / Comment(s): L wrist surgery with hardware, R ankle pinned, TULVP, cysto with urethrotomy, bilateral inguinal hernia repairs, 2 goiter surgeries, colonoscopy. Past Anesthesia/Blood Transfusion Reactions: No Reported Reaction Smoking Status: Former smoker - Past Family History Father Family Medical History: Cancer, Prostate Disorder Additional Family Medical History / Comment(s): Father had melanoma. He also had BPH Mother Family Medical History: Cancer Additional Family Medical History / Comment(s): leukemia Brother(s) Family Medical History: Coronary Artery Disease (CAD) Medications and Allergies Home Medications Medication Instructions Recorded Confirmed Type Atorvastatin [Lipitor] 20 mg PO DAILY 01/17/16 05/13/19 History Digoxin [Digitek] 125 mcg PO DAILY 01/17/16 05/13/19 History Ergocalciferol [Vitamin D2 50,000 unit PO Q30D 01/17/16 05/13/19 History (DRISDOL)] Furosemide 60 mg PO BID 01/17/16 05/13/19 History Ipratropium/Albuterol Sulfate 1 puff INHALATION RT-QID PRN 01/17/16 05/13/19 History [Combivent Respimat Inhaler] Ipratropium-Albuterol Nebulize 3 ml INHALATION RT-QID 01/18/16 05/13/19 History [Duoneb 0.5 mg-3 mg/3 ml Soln] Acetaminophen [Tylenol] 500 mg PO QAM 04/08/16 05/13/19 History Ferrous Sulfate [Iron (65 MG 325 mg PO DAILY 04/08/16 05/13/19 History Elemental)] Sennosides/Docusate Sodium [Hailey 1 tab PO DAILY 04/08/16 05/13/19 History Colace] Tamsulosin [Flomax] 0.4 mg PO HS 04/08/16 05/13/19 History Metoprolol Succinate (ER) [Toprol 50 mg PO DAILY 04/12/19 05/13/19 History XL] Isosorbide Mononitrate ER [Imdur] 15 mg PO DAILY 04/13/19 05/13/19 History Calcitriol 0.25 mcg PO MOTUWETH 05/13/19 05/13/19 History Calcitriol 0.5 mcg PO SUFRSA 05/13/19 05/13/19 History Warfarin [Coumadin] 2.5 mg PO SUTU 05/13/19 05/13/19 History Warfarin [Coumadin] 5 mg PO MOWETHFRSA 05/13/19 05/13/19 History Allergies Allergy/AdvReac Type Severity Reaction Status Date / Time codeine Allergy Itching Verified 05/13/19 09:31 Physical Exam Vitals: Vital Signs Temp Pulse Pulse Pulse Pulse Pulse Resp 05/14/19 07:41 68 05/14/19 04:00 97.7 F 82 18 05/14/19 00:00 97.6 F 68 18 05/13/19 20:00 98.6 F 72 16 05/13/19 14:30 97.0 F L 89 18 05/13/19 13:48 97.8 F 72 19 05/13/19 13:40 66 05/13/19 13:00 75 18 05/13/19 12:00 70 18 05/13/19 11:00 87 20 05/13/19 10:34 94 100 104 H 05/13/19 09:27 97.4 F L 103 H 18 BP BP BP BP BP Pulse Ox 05/14/19 07:41 05/14/19 04:00 117/67 94 L 05/14/19 00:00 119/71 96 05/13/19 20:00 113/62 93 L 05/13/19 14:30 132/71 97 05/13/19 13:48 128/96 98 05/13/19 13:40 05/13/19 13:00 141/71 96 05/13/19 12:00 132/93 98 05/13/19 11:00 137/93 98 05/13/19 10:34 93/67 83/57 120/92 05/13/19 09:27 112/71 97 Intake and Output 05/13/19 05/14/19 05/14/19 22:59 06:59 14:59 Intake Total 232 Output Total 800 2100 Balance -568 -2100 Intake: Oral 232 Output: Urine 800 2100 Other: Voiding Method Self-Catheterization Self-Catheterization # Voids 1 1 Weight 76.8 kg Results - Lab Results Most recent lab results Calcium 9.2 mg/dL (8.4-10.2) 05/14/19 06:19 Magnesium 1.7 mg/dL (1.6-2.3) 05/14/19 06:19 05/13/19 10:07 05/14/19 06:19 Assessment and Plan Plan: Assessment: 1. Acute kidney injury mostly prerenal secondary to hypotension and diaphoresis. Creatinine was 1.99 on admission and is 1.7-2. UA benign. 2. Chronic kidney disease stage III secondary to nephrosclerosis and cardiorenal syndrome. Baseline creatinine near 1.5 outpatient. 3. Hypotension secondary to intravascular volume depletion from diuresis. Improved with IV hydration. 4. Hypokalemia secondary to diuresis. 5. Chronic kidney disease mineral bone disease maintained on calcitriol. 6. History of urethral stricture. Patient follows with urology. Plan: Hold Lasix today. I would decreased rate of normal saline to 50 mL an hour. Encouraged oral intake. Replace potassium. 40 mEq today. Replace magnesium. 1 g IV today. Repeat electrolytes in the morning. Thank you for the consultation. I will continue to follow the patient with you during his hospital stay.
[2019-05-14] MEDS ORDERED: POTASSIUM CHLORIDE ER 20 MEQ TAB.ER PO STA (08:18)
[2019-05-14] MEDS: FERROUS SULFATE 325 MG TAB PO SCH (08:59)
[2019-05-14] MEDS: ACETAMINOPHEN TAB 500 MG TAB PO SCH (09:00)
[2019-05-14] MEDS: ATORVASTATIN 20 MG TAB PO SCH (09:00)
[2019-05-14] MEDS: SENNOSIDES-DOCUSATE SODIUM 1 EACH TAB PO SCH (09:00)
[2019-05-14] MEDS: CALCITRIOL 0.25 MCG CAP PO SCH (09:00)
[2019-05-14] MEDS: ISOSORBIDE MONONITRATE ER 15 MG TAB PO SCH (09:00)
[2019-05-14] MEDS: SODIUM CHLORIDE 0.9% 1,000 ML IV SCH (09:01)
[2019-05-14] MEDS ORDERED: Potassium Replacement Protocol 1 EACH MISC MISCELLANE PRN (10:26)
[2019-05-14] MEDS ORDERED: Magnesium Replacement Protocol 1 EACH MISC MISCELLANE PRN (10:27)
--- NOTE | 2019-05-14 20:01 | P.HPIM ---
History of Present Illness H&P Date: 05/14/19 Chief Complaint: Increased weakness, weight loss This is an 84-year-old gentleman with medical history of atrial fibrillation, CHF, COPD, hyperlipidemia, hypertension, osteoarthritis,CKD III, cardiorenal syndrome, chronic urinary retention, sleep apnea-refuses CPAP, and gait dysfunction, former smoker, history of alcohol abuse and multiple other medical issues presented to the ER with complaints of significantly increased weakness with resulting fall. States he did hit his head, brain CT ordered and pending. Denies lightheadedness, dizziness or focal deficits. Denies headache. Denies chest pain, palpitations or increased shortness of breath. Denies nausea vomiting or diarrhea Denies any fever or chills. Reports fair appetite. Patient was also placed on scheduled metalozone for a few days last week by his PCP, but misunderstood and continued taking the medication. Reports weight loss,; approximately 3 kg down from last months visit. EKG reporting controlled atrial fibrillation, chest x-ray reporting nonacute, stable moderate cardiomegaly, stable small right pleural effusions. Mild orthostatic hypotension. Troponins 0.050, 0.033, 0.041. Digoxin level 0.8, afebrile, normal WBC. INR 5.2. Potassium 3.4, received supplementation.Magnesium 1.7, supplemented BUN 50, creatinine 1.99, down to 44 and 1.72 today.UA benign Placed on gentle IV fluid hydration. Lasix placed on hold. Review of Systems ROS Statement: Those systems with pertinent positive or pertinent negative responses have been documented in the HPI. ROS Other: All systems not noted in ROS Statement are negative. Past Medical History Past Medical History: Atrial Fibrillation, Heart Failure, COPD, Eye Disorder, Hyperlipidemia, Hypertension, Osteoarthritis (OA), Prostate Disorder, Renal Disease, Sleep Apnea/CPAP/BIPAP Additional Past Medical History / Comment(s): Pt recently admitted to [facility] on 04/12/19 with acute exacerbation COPD/purulent tracheobronchitis/possible right lower lobe pneumonia/sepsis and afib with RVR. Other hx: Chronic urinary retention/self caths 4 times a day, UTIs, CKD stage III, BPH, hyperuricemia, chronic chf, JUAN-refuses CPap, arthritis bilateral hands/knees, L eye macular degeneration, vitamin D deficiency. History of Any Multi-Drug Resistant Organisms: None Reported Past Surgical History: Hernia Repair, Orthopedic Surgery, Prostate Surgery Additional Past Surgical History / Comment(s): L wrist surgery with hardware, R ankle pinned, TULVP, cysto with urethrotomy, bilateral inguinal hernia repairs, 2 goiter surgeries, colonoscopy. Past Anesthesia/Blood Transfusion Reactions: No Reported Reaction Smoking Status: Former smoker - Past Family History Father Family Medical History: Cancer, Prostate Disorder Additional Family Medical History / Comment(s): Father had melanoma. He also delatorre d BPH Mother Family Medical History: Cancer Additional Family Medical History / Comment(s): leukemia Brother(s) Family Medical History: Coronary Artery Disease (CAD) Medications and Allergies Home Medications Medication Instructions Recorded Confirmed Type Atorvastatin [Lipitor] 20 mg PO DAILY 01/17/16 05/13/19 History Digoxin [Digitek] 125 mcg PO DAILY 01/17/16 05/13/19 History Ergocalciferol [Vitamin D2 50,000 unit PO Q30D 01/17/16 05/13/19 History (DRISDOL)] Furosemide 60 mg PO BID 01/17/16 05/13/19 History Ipratropium/Albuterol Sulfate 1 puff INHALATION RT-QID PRN 01/17/16 05/13/19 History [Combivent Respimat Inhaler] Ipratropium-Albuterol Nebulize 3 ml INHALATION RT-QID 01/18/16 05/13/19 History [Duoneb 0.5 mg-3 mg/3 ml Soln] Acetaminophen [Tylenol] 500 mg PO QAM 04/08/16 05/13/19 History Ferrous Sulfate [Iron (65 MG 325 mg PO DAILY 04/08/16 05/13/19 History Elemental)] Sennosides/Docusate Sodium [Hailey 1 tab PO DAILY 04/08/16 05/13/19 History Colace] Tamsulosin [Flomax] 0.4 mg PO HS 04/08/16 05/13/19 History Metoprolol Succinate (ER) [Toprol 50 mg PO DAILY 04/12/19 05/13/19 History XL] Isosorbide Mononitrate ER [Imdur] 15 mg PO DAILY 04/13/19 05/13/19 History Calcitriol 0.25 mcg PO MOTUWETH 05/13/19 05/13/19 History Calcitriol 0.5 mcg PO SUFRSA 05/13/19 05/13/19 History Warfarin [Coumadin] 2.5 mg PO SUTU 05/13/19 05/13/19 History Warfarin [Coumadin] 5 mg PO MOWETHFRSA 05/13/19 05/13/19 History Allergies Allergy/AdvReac Type Severity Reaction Status Date / Time codeine Allergy Itching Verified 05/13/19 09:31 Physical Exam Vitals: Vital Signs Temp Pulse Pulse Pulse Pulse Pulse Resp 05/14/19 07:51 69 05/14/19 07:41 68 05/14/19 04:00 97.7 F 82 18 05/14/19 00:00 97.6 F 68 18 05/13/19 20:00 98.6 F 72 16 05/13/19 14:30 97.0 F L 89 18 05/13/19 13:48 97.8 F 72 19 05/13/19 13:40 66 05/13/19 13:00 75 18 05/13/19 12:00 70 18 05/13/19 11:00 87 20 05/13/19 10:34 94 100 104 H BP BP BP BP BP Pulse Ox 05/14/19 07:51 05/14/19 07:41 05/14/19 04:00 117/67 94 L 05/14/19 00:00 119/71 96 05/13/19 20:00 113/62 93 L 05/13/19 14:30 132/71 97 05/13/19 13:48 128/96 98 05/13/19 13:40 05/13/19 13:00 141/71 96 05/13/19 12:00 132/93 98 05/13/19 11:00 137/93 98 05/13/19 10:34 93/67 83/57 120/92 Intake and Output 05/13/19 05/14/19 05/14/19 22:59 06:59 14:59 Intake Total 232 100 Output Total 800 2100 400 Balance -568 2100 -300 Intake: Oral 232 100 Output: Urine 800 2100 400 Other: Voiding Method Self-Catheterization Self-Catheterization # Voids 1 1 1 Weight 76.8 kg PHYSICAL EXAM: VITAL SIGNS: As above GENERAL: Sitting up in bed, no acute distress HEENT: Conjunctivae normal. eyes normal. Oral mucosa moist NECK: No JVD. No thyroid enlargement. No LNs CARDIOVASCULAR: S1, S2 irregular.. No murmur RESPIRATION: Breath sounds diminished in the bases. No rhonchi or crackles. No bronchial breathing. ABDOMEN: Soft, nontender . No guarding. no masses palpable. No ascites, No hepatosplenomegaly.Bowel sounds heard. LEGS: No edema. no swelling PSYCHIATRY: Alert and oriented X3, mood and affect normal. NERVOUS SYSTEM: Cranial N 2-12 grossly normal. Moves all 4 limbs. Diffuse wea kness ,No focal deficits. Strength and sensation grossly intact.. Skin: no lesions, no rash Joints: No active swelling. No inflammation. Lymphatic system. No LN neck axilla or groin. Results CBC & Chem 7: 05/13/19 10:07 05/14/19 06:19 Labs: Abnormal Lab Results - Last 24 Hours (Table) 05/13/19 05/13/19 05/13/19 Range/Units 10:07 10:07 10:07 PT 50.6 H (9.0-12.0) sec INR 5.2 H* (<1.2) APTT 46.5 H (22.0-30.0) sec Sodium 132 L (137-145) mmol/L Potassium 3.4 L (3.5-5.1) mmol/L Chloride 85 L (98-107) mmol/L Carbon Dioxide 35 H (22-30) mmol/L BUN 50 H (9-20) mg/dL Creatinine 1.99 H (0.66-1.25) mg/dL Glucose 126 H (74-99) mg/dL Troponin I 0.050 H* (0.000-0.034) ng/mL 05/13/19 05/14/19 Range/Units 22:06 06:19 PT (9.0-12.0) sec INR (<1.2) APTT (22.0-30.0) sec Sodium 134 L (137-145) mmol/L Potassium (3.5-5.1) mmol/L Chloride 92 L (98-107) mmol/L Carbon Dioxide 34 H (22-30) mmol/L BUN 44 H (9-20) mg/dL Creatinine 1.72 H (0.66-1.25) mg/dL Glucose 103 H (74-99) mg/dL Troponin I 0.041 H* (0.000-0.034) ng/mL Thrombosis Risk Factor Assmnt - Choose All That Apply Any of the Below Risk Factors Present?: Yes Each Factor Represents 1 point: Abnormal pulmonary function (COPD), Obesity (BMI >25) Other Risk Factors: Yes Each Risk Factor Represents 3 Points: Age 75 years or older Other congenital or acquired thrombophilia - If yes, enter type in comment: No Thrombosis Risk Factor Assessment Total Risk Factor Score: 5 Thrombosis Risk Factor Assessment Level: High Risk Assessment and Plan Assessment: -Generalized weakness, status post fall, mild symptomatic orthostatic hypotension, hypokalemia, acute renal failure; possibly medication induced- extended duration of metolazone -Acute renal failure on chronic renal failure stage III. Baseline creatinine 1.2-1.5. Acute -prerenal , secondary to hypotension, diuresing .Chronic Secondary to nephrosclerosis and cardiorenal syndrome. -Hypotension secondary to intravascular volume depletion r/t diuresis -Mild symptomatic orthostatic hypotension secondary to the above -Hypokalemia secondary to diuresing -COPD, stable -Chronic controlled Atrial fibrillation. -Hypercoagulopathy, Coumadin on hold -Chronic CHF with diastolic dysfunction -Objective sleep apnea. Patient refuses to use CPAP at home -Hypertension -Hyperlipidemia -Chronic urinary retention. Uses straight catheterization at home. -History of urethral stricture, follows with urology -Macular degeneration of left eye -Previous history of smoking. Plan: Continue current medication regime ,monitoring and symptomatic treatment. Head CT ordered and pending in a patient on Coumadin with elevated INR of 5.2 who sustained a fall and hit his head.Coumadin on hold .Home meds have been reviewed and resumed. Cardiology and nephrology consults placed. PT/OT. Close monitoring of renal function and electro lytes with repeat labs ordered for a.m. GI prophylaxis in place. The impression and plan of care has been dictated as directed. : I performed a history and examination of this patient, discussed the same with the dictator. I agree with the dictator's note ,documented as a scribe. Any additional findings or plans will be noted.
--- NOTE | 2019-05-14 20:40 | CT ---
EXAMINATION TYPE: CT brain wo con DATE OF EXAM: 05/14/2019 COMPARISON: 02/26/2019 HISTORY: Fall with right sided head injury. CT DLP: 1090.4 mGycm Automated exposure control for dose reduction was used. 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 There is mild cerebral atrophy. There is no mass effect nor midline shift. There is no sign of intr acranial hemorrhage. The calvarium is intact. There is no evidence of a fracture. Skull base is intac t. IMPRESSION: MILD ATROPHY. 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 NO ACUTE INTRACRANIAL ABNORMALITY. NO CHANGE .
[2019-05-14] MEDS: TAMSULOSIN 0.4 MG CAP.ER.24H PO SCH (22:14)
[2019-05-15] MEDS: SODIUM CHLORIDE 0.9% 1,000 ML IV SCH (06:58)
[2019-05-15 07:13] LABS: INR 1.7 (<1.2); Prothrombin Time 16.7 sec (9.0-12.0)
[2019-05-15 07:26] LABS: Calcium 9.4 mg/dL (8.4-10.2); Magnesium 1.8 mg/dL (1.6-2.3); Potassium 4.2 mmol/L (3.5-5.1)
[2019-05-15] MEDS: IPRATROPIUM-ALBUTEROL 3 ML NEB INHALATION SCH ×4 (07:47→19:04)
[2019-05-15] MEDS: ISOSORBIDE MONONITRATE ER 15 MG TAB PO SCH (08:08)
[2019-05-15] MEDS: DIGOXIN 125 MCG TAB PO SCH (08:08)
[2019-05-15] MEDS: ATORVASTATIN 20 MG TAB PO SCH (08:08)
[2019-05-15] MEDS: ACETAMINOPHEN TAB 500 MG TAB PO SCH (08:08)
[2019-05-15] MEDS: SENNOSIDES-DOCUSATE SODIUM 1 EACH TAB PO SCH (08:08)
[2019-05-15] MEDS: FERROUS SULFATE 325 MG TAB PO SCH (08:08)
[2019-05-15] MEDS: METOPROLOL SUCCINATE (ER) 50 MG TAB.ER.24H PO SCH (08:08)
[2019-05-15] MEDS: CALCITRIOL 0.25 MCG CAP PO SCH (08:11)
--- NOTE | 2019-05-15 09:22 | P.PN ---
Subjective Patient is seen in follow-up for acute kidney injury on chronic kidney disease. Patient has chronic kidney disease stage III with baseline creatinine in the range of 1.2-1.5 secondary to nephrosclerosis and cardiorenal syndrome. Diuretics are held. Maintain on normal saline at 50 mL an hour. Renal function is better. Creatinine 1.55 today. No vomiting or diarrhea. Vital signs are stable. General: The patient appeared well nourished and normally developed. HEENT: Head exam is unremarkable. Neck is without jugular venous distension. LUNGS: Lungs are clear to auscultation and percussion. Breath sounds decreased. HEART: Rate and Rhythm are regular. First and second heart sounds normal. No murmurs, rubs or gallops. ABDOMEN: Abdominal exam reveals normal bowel sounds. Non-tender and non- distended. No evidence of peritonitis. EXTREMITITES: No clubbing, cyanosis, or edema. Objective - Vital Signs Vital signs: Vital Signs Temp 97.8 F 05/15/19 04:00 Pulse 88 05/15/19 07:59 Resp 18 05/15/19 04:00 BP 148/81 05/15/19 04:00 Pulse Ox 97 05/15/19 04:00 Intake & Output 05/14/19 05/15/19 05/15/19 18:59 06:59 18:59 Intake Total 530 120 240 Output Total 1150 200 Balance -620 -80 240 Weight 78.7 kg Intake: Oral 530 120 240 Output: Urine 1150 200 Other: Voiding Method Self-Catheterization Self-Catheterization # Voids 1 1 - Labs CBC & Chem 7: 05/13/19 10:07 05/15/19 06:28 Labs: Abnormal Lab Results - Last 24 Hours (Table) 05/15/19 05/15/19 Range/Units 06:28 06:28 PT 16.7 H (9.0-12.0) sec INR 1.7 H (<1.2) Chloride 97 L (98-107) mmol/L Carbon Dioxide 34 H (22-30) mmol/L BUN 38 H (9-20) mg/dL Creatinine 1.55 H (0.66-1.25) mg/dL Glucose 149 H (74-99) mg/dL Assessment and Plan Plan: Assessment: 1. Acute kidney injury mostly prerenal secondary to hypotension and diaphoresis. Creatinine was 1.99 on admission and is 1.55 today. UA benign. 2. Chronic kidney disease stage III secondary to nephrosclerosis and cardiore nal syndrome. Baseline creatinine near 1.5 outpatient. 3. Hypotension secondary to intravascular volume depletion from diuresis. Improved with IV hydration. 4. Hypokalemia secondary to diuresis. Better post replacement. 5. Chronic kidney disease mineral bone disease maintained on calcitriol. 6. History of urethral stricture. Patient follows with urology. Plan: Hep-Lock IV fluids. Encouraged oral intake. Hold off on diuretics for now. I advised the patient to resume Lasix at a dose of 60 mg once daily if notices more than 2-3 pound weight gain or worsening of dyspnea/edema. He will need to follow-up outpatient in the next 1-2 weeks.
--- NOTE | 2019-05-15 12:51 | P.PN ---
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 States he did hit his head, brain CT ordered and pending. Denies lightheadedness, dizziness or focal deficits. Denies headache. Denies chest pain, palpitations or increased shortness of breath. Denies nausea vomiting or diarrhea Denies any fever or chills. Reports fair appetite. Patient was also placed on scheduled metalozone for a few days last week by his PCP, but misunderstood and continued taking the medication. Reports weight loss,; approximately 3 kg down from last months visit. EKG reporting controlled atrial fibrillation, chest x-ray reporting nonacute, stable moderate cardiomegaly, stable small right pleural effusions. Mild orthostatic hypotension. Troponins 0.050, 0.033, 0.041. Digoxin level 0.8, afebrile, normal WBC. INR 5.2. Potassium 3.4, received supplementation.Magnesium 1.7, supplemented BUN 50, creatinine 1.99, down to 44 and 1.72 today.UA benign Placed on gentle IV fluid hydration. Lasix placed on hold. Subjective: This is first time taking care of the patient 05/15/2019 This is a pleasant 84 years old male who presents with fall and generalized weakness, on admission he had positive orthostatic hypotension and acute kidney injury on the top of chronic kidney disease. His creatinine is improving down from 1.7 to 1.5. Patient with no chest pain or dyspnea however he has positive troponins. We'll consult cardiology team. No abdominal complaints of nausea vomiting. Patient tolerating diet well. No change in urine or bowel habits. No fever. His IV fluids was discontinued. His INR subtherapeutic, we will restart his Coumadin today. Review of systems CONSTITUTIONAL: No fever, no malaise, no fatigue. HEENT: No recent visual problems or hearing problems. Denied any sore throat. CARDIOVASCULAR: No orthopnea, PND, no palpitations, no syncope. PULMONARY: No shortness of breath, no cough, no hemoptysis. GASTROINTESTINAL: No diarrhea, no nausea, no vomiting, no abdominal pain. Normoactive bowel sounds. NEUROLOGICAL: No headaches, no weakness, no numbness. HEMATOLOGICAL: Denies any bleeding or petechiae. GENITOURINARY: Denies any burning micturition, frequency, or urgency. MUSCULOSKELETAL/RHEUMATOLOGICAL: Denies any joint pain, swelling, or any muscle pain. ENDOCRINE: Denies any polyuria or polydipsia. Active Medications Generic Name Dose Route Start Last Admin Trade Name Freq PRN Reason Stop Dose Admin Acetaminophen 500 mg 05/14/19 09:00 05/15/19 08:08 Tylenol Tab PO 500 mg QAM ALEX Administration Albuterol/Ipratropium 3 ml 05/14/19 08:00 05/15/19 11:48 Duoneb 0.5 Mg-3 Mg/3 Ml Soln INHALATION 3 ml RT-QID ALEX Administration Atorvastatin Calcium 20 mg 05/14/19 09:00 05/15/19 08:08 Lipitor PO 20 mg DAILY ALEX Administration Calcitriol 0.25 mcg 05/17/19 09:00 Rocaltrol PO MOTUWETH ALEX Calcitriol 0.5 mcg 05/14/19 09:00 05/15/19 08:11 Rocaltrol PO 0.5 mcg SUFRSA ALEX Administration Digoxin 125 mcg 05/14/19 09:00 05/15/19 08:08 Lanoxin PO 125 mcg DAILY ALEX Administration Ergocalciferol 50,000 unit 05/27/19 09:00 Vitamin D2 PO Q30D ALEX Ferrous Sulfate 325 mg 05/14/19 09:00 05/15/19 08:08 Feosol PO 325 mg DAILY ALEX Administration Isosorbide Mononitrate 15 mg 05/14/19 09:00 05/15/19 08:08 Imdur PO 15 mg DAILY ALEX Administration Metoprolol Succinate 50 mg 05/14/19 09:00 05/15/19 08:08 Toprol Xl PO 50 mg DAILY ALEX Administration Miscellaneous Information 1 each 05/13/19 22:21 Potassium Per Protocol MISCELLANE DAILY PRN Per Protocol Protocol Miscellaneous Information 1 each 05/14/19 10:26 Potassium Per Protocol MISCELLANE DAILY PRN Per Protocol Protocol Miscellaneous Information 1 each 05/14/19 10:27 Magnesium Per Protocol MISCELLANE DAILY PRN Per Protocol Protocol Senna/Docusate Sodium 1 each 05/14/19 09:00 05/15/19 08:08 Senokot-S PO 1 each DAILY ALEX Administration Tamsulosin HCl 0.4 mg 05/14/19 21:00 05/14/19 22:14 Flomax PO 0.4 mg HS ALEX Administration Warfarin Sodium 5 mg 05/15/19 18:00 Coumadin PO MOWETHFRSA ALEX Warfarin Sodium 2.5 mg 05/16/19 18:00 Coumadin PO SUTU ALEX Objective - Vital Signs Vital signs: Vital Signs Temp 97.8 F 05/15/19 08:00 Pulse 88 05/15/19 12:00 Resp 20 05/15/19 08:00 BP 129/60 05/15/19 08:00 Pulse Ox 97 05/15/19 08:00 Intake & Output 05/14/19 05/15/19 05/15/19 18:59 06:59 18:59 Intake Total 530 120 240 Output Total 1150 200 Balance -620 -80 240 Weight 78.7 kg 79.9 kg Intake: Oral 530 120 240 Output: Urine 1150 200 Other: Voiding Method Self-Catheterization Self-Catheterization # Voids 1 1 - Exam GENERAL: The patient is alert and oriented x3, not in any acute distress. Generally weak. HEENT: Pupils are round and equally reacting to light. EOMI. No scleral icterus. No conjunctival pallor. Normocephalic, atraumatic. No pharyngeal erythema. No thyromegaly. CARDIOVASCULAR: S1 and S2 present. No murmurs, rubs, or gallops. PULMONARY: Chest is clear to auscultation, no wheezing or crackles. ABDOMEN: Soft, nontender, nondistended, normoactive bowel sounds. No palpable organomegaly. MUSCULOSKELETAL: No joint swelling or deformity. EXTREMITIES: No cyanosis, clubbing, or pedal edema. NEUROLOGICAL: Gross neurological examination did not reveal any focal deficits. SKIN: No rashes. - Labs CBC & Chem 7: 05/13/19 10:07 05/15/19 06:28 Labs: Abnormal Lab Results - Last 24 Hours (Table) 05/15/19 05/15/19 Range/Units 06:28 06:28 PT 16.7 H (9.0-12.0) sec INR 1.7 H (<1.2) Chloride 97 L (98-107) mmol/L Carbon Dioxide 34 H (22-30) mmol/L BUN 38 H (9-20) mg/dL Creatinine 1.55 H (0.66-1.25) mg/dL Glucose 149 H (74-99) mg/dL Assessment and Plan Assessment: -Generalized weakness, status post fall, mild symptomatic orthostatic hypotension, -Acute renal failure on chronic renal failure stage III. Baseline creatinine 1.2-1.5. Improving -Hypotension secondary to intravascular volume depletion r/t diuresis. Improving -Mild symptomatic orthostatic hypotension secondary to the above -Hypokalemia secondary to diuresing -COPD, stable -Chronic controlled Atrial fibrillation. -Hypercoagulopathy, Coumadin on hold -Chronic CHF with diastolic dysfunction -Objective sleep apnea. Patient refuses to use CPAP at home -Hypertension -Hyperlipidemia -Chronic urinary retention. Uses straight catheterization at home. -History of urethral stricture, follows with urology -Macular degeneration of left eye -Previous history of smoking. Plan: Continue current medication regime ,monitoring and symptomatic treatment. Stop IV fluids. Restart Coumadin..Home meds have been reviewed and resumed. Cardiology and nephrology consults placed. PT/OT. Close monitoring of renal function and electro lytes with repeat labs ordered for a.m. GI prophylaxis in place. DVT prophylaxis: Started on Coumadin. He was on Lasix and metolazone by his primary team which are on hold now. 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
--- NOTE | 2019-05-15 13:50 | P.CRDCN ---
History of Present Illness History of present illness: This is a pleasant 84-year-old male past medical history significant for COPD, obstructive sleep apnea, chronic persistent atrial fibrillation on long-term anticoagulation, hypertension, dyslipidemia and former alcohol and nicotine dependence. He follows in the office with Dr. Donahue. We have been asked to see him in consultation secondary to heart failure. He states he was at home doing his normal routine activities walking around his home when he suddenly fell down. He denies having any dizziness or lightheadedness prior to this episode. He states he simply fell. He did not trip he did not consciousness. He had no preceding chest pain, shortness of breath or palpitations. He states he hit his head on the left side. He did not initially commend for evaluation and the following morning when he woke up he felt increasingly weak, tired and lightheaded. Upon arrival to the emergency department his INR was 5.2. CT of the brain was negative for any acute i ntracranial process. He is seen and examined resting comfortably in no acute distress. He continues to deny any symptoms of chest discomfort or shortness of breath. He was found to have orthostatic changes upon arrival to the emergency department with close blood pressure while standing and he 3/57. Dropped from 120/92. Repeat orthostatic vital signs last evening were unremarkable. Lasix has been held since admission. He was also started on Zaroxolyn by his primary care physician last week which has been held. EKG reveals atrial fibrillation with controlled ventricular response. No acute ST or T wave abnormalities noted. Chest x-ray reveals chronic parenchymal changes are mild cardiomegaly with a small stable right pleural effusion. Laboratory data reviewed, WBC 9.2, hemoglobin 13.9, platelets 294, INR on admission 5. 2 repeat today 1.7, troponin 0.050, 0.033 and 0.041, creatinine 1.72 with a GFR of 36, potassium 3.5, magnesium 1.9, sodium 134 and proBNP 1540. Most recent echocardiogram obtained in the office May 2017 reveals preserved LV systolic function with ejection fraction 55%. Most recent Lexiscan performed in the office February 2019 reveals partially reversible defect with moderate hypoperfusion of the apical segment. At that time with the absence of angina conservative medical approach was taken. Current cardiac medications include Coumadin, Toprol 50 mg daily, Imdur 15 mg daily, Lasix 60 mg twice a day, digoxin 125 g daily and atorvastatin 20 mg daily. At the time of my exam: CONSTITUTIONAL: Denies fever. Denies chills. EYES: Denies blurred vision. Denies vision changes. Denies eye pain. EARS, NOSE, MOUTH & THROAT: Denies headache. Denies sore throat. Denies ear pain. CARDIOVASCULAR: Denies chest pain. Denies shortness of breath. Denies orthopnea. Denies PND. Denies palpitations. RESPIRATORY: Denies cough. GASTROINTESTINAL: Denies abdominal pain. Denies diarrhea. Denies constipation. Denies nausea. Denies vomiting. MUSCULOSKELETAL: Denies myalgias. INTEGUMENTARY: Denies pruitis. Denies rash. NEUROLOGIC: Denies numbness. Denies tingling. Denies weakness. PSYCHIATRIC: Denies anxiety. Denies depression. ENDOCRINE: Denies fatigue. Denies weight change. Denies polydipsia. Denies polyurina. GENITOURINARY: Denies burning, hematuria or urgency with micturation. HEMATOLOGIC: Denies history of anemia. Denies bleeding. GENERAL: This is a 84-year-old male in no apparent distress at the time of my examination. HEENT: Head is atraumatic, normocephalic. Pupils are equal, round. Sclerae anicteric. Conjunctivae are clear. Mucous membranes of the mouth are moist. Neck is supple. There is no jugular venous distention. No carotid bruit is heard. LUNGS: Clear to auscultation no wheezes, rales or rhonchi. No chest wall tenderness is noted on palpation or with deep breathing. HEART: Irregular rate and rhythm without murmurs, rubs or gallops. S1 and S2 heard. ABDOMEN: Soft, nontender. Bowel sounds are heard. No organomegaly noted. EXTREMITIES: No evidence of peripheral edema and no calf tenderness noted. VASCULAR: Radial and dorsalis pedis pulses palpated, no evidence of clubbing. NEUROLOGIC: Patient is awake, alert and oriented x3. ASSESSMENT Fall from standing, no loss of consciousness Chronic persistent atrial fibrillation on long-term anticoagulation Supratherapeutic INR Acute kidney injury Orthostatic hypotension History of chronic urinary retention, straight caths 4 times daily. PLAN Repeat echocardiogram to assess LV systolic function. Agree with discontinuation of Zaroxolyn. Resume a small dose of diuretics when appropriate per nephrology. Thank you kindly for this consultation. Nurse Practitioner note has been reviewed, I agree with a documented findings and plan of care. Patient was seen and examined. Past Medical History Past Medical History: Atrial Fibrillation, Heart Failure, COPD, Eye Disorder, Hyperlipidemia, Hypertension, Osteoarthritis (OA), Prostate Disorder, Renal Disease, Sleep Apnea/CPAP/BIPAP Additional Past Medical History / Comment(s): Pt recently admitted to [facility] on 04/12/19 with acute exacerbation COPD/purulent tracheobronchitis/possible right lower lobe pneumonia/sepsis and afib with RVR. Other hx: Chronic urinary retention/self caths 4 times a day, UTIs, CKD stage III, BPH, hyperuricemia, chronic chf, JUAN-refuses CPap, arthritis bilateral hands/knees, L eye macular degeneration, vitamin D deficiency. History of Any Multi-Drug Resistant Organisms: None Reported Past Surgical History: Hernia Repair, Orthopedic Surgery, Prostate Surgery Additional Past Surgical History / Comment(s): L wrist surgery with hardware, R ankle pinned, TULVP, cysto with urethrotomy, bilateral inguinal hernia repairs, 2 goiter surgeries, colonoscopy. Past Anesthesia/Blood Transfusion Reactions: No Reported Reaction Smoking Status: Former smoker - Past Family History Father Family Medical History: Cancer, Prostate Disorder Additional Family Medical History / Comment(s): Father had melanoma. He also had BPH Mother Family Medical History: Cancer Additional Family Medical History / Comment(s): leukemia Brother(s) Family Medical History: Coronary Artery Disease (CAD) Medications and Allergies Home Medications Medication Instructions Recorded Confirmed Type Atorvastatin [Lipitor] 20 mg PO DAILY 01/17/16 05/13/19 History Digoxin [Digitek] 125 mcg PO DAILY 01/17/16 05/13/19 History Ergocalciferol [Vitamin D2 50,000 unit PO Q30D 01/17/16 05/13/19 History (DRISDOL)] Furosemide 60 mg PO BID 01/17/16 05/13/19 History Ipratropium/Albuterol Sulfate 1 puff INHALATION RT-QID PRN 01/17/16 05/13/19 History [Combivent Respimat Inhaler] Ipratropium-Albuterol Nebulize 3 ml INHALATION RT-QID 01/18/16 05/13/19 History [Duoneb 0.5 mg-3 mg/3 ml Soln] Acetaminophen [Tylenol] 500 mg PO QAM 04/08/16 05/13/19 History Ferrous Sulfate [Iron (65 MG 325 mg PO DAILY 04/08/16 05/13/19 History Elemental)] Sennosides/Docusate Sodium [Hailey 1 tab PO DAILY 04/08/16 05/13/19 History Colace] Tamsulosin [Flomax] 0.4 mg PO HS 04/08/16 05/13/19 History Metoprolol Succinate (ER) [Toprol 50 mg PO DAILY 04/12/19 05/13/19 History XL] Isosorbide Mononitrate ER [Imdur] 15 mg PO DAILY 04/13/19 05/13/19 History Calcitriol 0.25 mcg PO MOTUWETH 05/13/19 05/13/19 History Calcitriol 0.5 mcg PO SUFRSA 05/13/19 05/13/19 History Warfarin [Coumadin] 2.5 mg PO SUTU 05/13/19 05/13/19 History Warfarin [Coumadin] 5 mg PO MOWETHFRSA 05/13/19 05/13/19 History Allergies Allergy/AdvReac Type Severity Reaction Status Date / Time codeine Allergy Itching Verified 05/13/19 09:31 Physical Exam Vitals: Vital Signs Temp Pulse Pulse Pulse Pulse Pulse Resp 05/15/19 07:59 88 05/15/19 07:47 90 05/15/19 04:00 97.8 F 81 88 18 05/15/19 00:00 97.8 F 88 20 05/14/19 20:14 92 05/14/19 20:03 88 05/14/19 20:00 98.7 F 94 85 94 102 H 20 05/14/19 16:32 94 05/14/19 16:18 96 05/14/19 15:46 98.8 F 94 20 05/14/19 12:00 98.0 F 74 20 05/14/19 11:57 70 05/14/19 11:43 70 BP BP BP BP Pulse Ox 05/15/19 07:59 05/15/19 07:47 05/15/19 04:00 148/81 97 05/15/19 00:00 137/83 98 05/14/19 20:14 05/14/19 20:03 05/14/19 20:00 106/57 108/59 110/59 96 05/14/19 16:32 05/14/19 16:18 98 05/14/19 15:46 102/53 96 05/14/19 12:00 124/63 96 05/14/19 11:57 05/14/19 11:43 Intake and Output 05/14/19 05/15/19 05/15/19 22:59 06:59 14:59 Intake Total 320 240 Output Total 400 Balance -80 240 Intake: Oral 320 240 Output: Urine 400 Other: Voiding Method Self-Catheterization Self-Catheterization # Voids 1 1 Weight 78.7 kg Results 05/13/19 10:07 05/15/19 06:28 Coagulation 05/15/19 Range/Units 06:28 PT 16.7 H (9.0-12.0) sec Comprehensive Metabolic Panel 05/15/19 Range/Units 06:28 Sodium 137 (137-145) mmol/L Potassium 4.2 (3.5-5.1) mmol/L Chloride 97 L (98-107) mmol/L Carbon Dioxide 34 H (22-30) mmol/L BUN 38 H (9-20) mg/dL Creatinine 1.55 H (0.66-1.25) mg/dL Glucose 149 H (74-99) mg/dL Calcium 9.4 (8.4-10.2) mg/dL Current Medications Generic Name Dose Route Start Last Admin Trade Name Freq PRN Reason Stop Dose Admin Acetaminophen 500 mg 05/14/19 09:00 05/15/19 08:08 Tylenol Tab PO 500 mg QAM ALEX Administration Albuterol/Ipratropium 3 ml 05/14/19 08:00 05/15/19 07:47 Duoneb 0.5 Mg-3 Mg/3 Ml Soln INHALATION 3 ml RT-QID ALEX Administration Atorvastatin Calcium 20 mg 05/14/19 09:00 05/15/19 08:08 Lipitor PO 20 mg DAILY ALEX Administration Calcitriol 0.25 mcg 05/17/19 09:00 Rocaltrol PO MOTUWETH ALEX Calcitriol 0.5 mcg 05/14/19 09:00 05/15/19 08:11 Rocaltrol PO 0.5 mcg SUFRSA ALEX Administration Digoxin 125 mcg 05/14/19 09:00 05/15/19 08:08 Lanoxin PO 125 mcg DAILY ALEX Administration Ergocalciferol 50,000 unit 05/27/19 09:00 Vitamin D2 PO Q30D ALEX Ferrous Sulfate 325 mg 05/14/19 09:00 05/15/19 08:08 Feosol PO 325 mg DAILY ALEX Administration Sodium Chloride 1,000 mls @ 50 mls/hr 05/14/19 08:30 05/15/19 06:58 Saline 0.9% IV 50 mls/hr .Q20H ALEX Administration Isosorbide Mononitrate 15 mg 05/14/19 09:00 05/15/19 08:08 Imdur PO 15 mg DAILY ALEX Administration Metoprolol Succinate 50 mg 05/14/19 09:00 05/15/19 08:08 Toprol Xl PO 50 mg DAILY ALEX Administration Miscellaneous Information 1 each 05/13/19 22:21 Potassium Per Protocol MISCELLANE DAILY PRN Per Protocol Protocol Miscellaneous Information 1 each 05/14/19 10:26 Potassium Per Protocol MISCELLANE DAILY PRN Per Protocol Protocol Miscellaneous Information 1 each 05/14/19 10:27 Magnesium Per Protocol MISCELLANE DAILY PRN Per Protocol Protocol Senna/Docusate Sodium 1 each 05/14/19 09:00 05/15/19 08:08 Senokot-S PO 1 each DAILY ALEX Administration Tamsulosin HCl 0.4 mg 05/14/19 21:00 05/14/19 22:14 Flomax PO 0.4 mg HS ALEX Administration Intake and Output 05/14/19 05/15/19 05/15/19 22:59 06:59 14:59 Intake Total 320 240 Output Total 400 Balance -80 240 Intake: Oral 320 240 Output: Urine 400 Other: Voiding Method Self-Catheterization Self-Catheterization # Voids 1 1 Weight 78.7 kg 05/13/19 10:07 05/15/19 06:28
[2019-05-15] MEDS ORDERED: WARFARIN 5 MG TAB PO SCH (18:00)
--- NOTE | 2019-05-15 18:07 | ECHOF ---
Referral Reason:sob, elev trop MEASUREMENTS -------- HEIGHT: 172.7 cm WEIGHT: 79.4 kg BP: RVIDd: 2.7 cm (< 3.3) IVSd: 0.8 cm (0.6 - 1.1) LVIDd: 4.3 cm (3.9 - 5.3) LVPWd: 1.2 cm (0.6 - 1.1) IVSs: 1.5 cm LVIDs: 1.7 cm LVPWs: 1.6 cm LAESV Index (A-L): 41.41 ml/m Ao Diam: 2.8 cm (2.0 - 3.7) AV Cusp: 1.8 cm (1.5 - 2.6) LA Diam: 3.8 cm (2.7 - 3.8) MV EXCURSION: 18.395 mm (> 18.000) MV EF SLOPE: 127 mm/s (70 - 150) EPSS: 0.3 cm RAP: 5.00 mmHg RVSP: 45.68 mmHg FINDINGS -------- Atrial fibrillation. This was a technically adequate study. The left ventricular size is normal. There is mild concentric left ventricular hypertrophy. Overa ll left ventricular systolic function is normal with, an EF between 55 - 60 %. The right ventricle is normal in size. LA is severely dilated >40 ml/m2 RA appears enlarged. Interatrial and interventricular septum intact. The aortic valve is trileaflet and appears structurally normal. The mitral valve is normal. The mitral valve leaflets are mildly thickened. Mild mitral annular c alcification present. Mild mitral regurgitation is present. The tricuspid valve appears structurally normal. [id number] tricuspid regurgitation present. There is mild to moderate pulmonary hypertension. There is no pulmonic regurgitation present. The aortic root size is normal. The inferior vena cava is mildly dilated. There is no pericardial effusion. CONCLUSIONS -------- 1. Atrial fibrillation. 2. This was a technically adequate study. 3. The left ventricular size is normal. 4. There is mild concentric left ventricular hypertrophy. 5. Overall left ventricular systolic function is normal with, an EF between 55 - 60 %. 6. The right ventricle is normal in size. 7. LA is severely dilated >40 ml/m2 8. RA appears enlarged. 9. Interatrial and interventricular septum intact. 10. The aortic valve is trileaflet and appears structurally normal. 11. The mitral valve is normal. 12. The mitral valve leaflets are mildly thickened. 13. Mild mitral annular calcification present. 14. Mild mitral regurgitation is present. 15. The tricuspid valve appears structurally normal. 16. [id number] tricuspid regurgitation present. 17. There is mild to moderate pulmonary hypertension. 18. There is no pulmonic regurgitation present. 19. The aortic root size is normal. 20. The inferior vena cava is mildly dilated. 21. There is no pericardial effusion. PACKAGE COLLECTOR: Lyn Junior RDCS
[2019-05-15] MEDS ORDERED: SALINE NASAL GEL 14.1 GM TUBE TOPICAL PRN (20:57)
[2019-05-15] MEDS: TAMSULOSIN 0.4 MG CAP.ER.24H PO SCH (21:54)
[2019-05-16 06:34] LABS: INR 1.4 (<1.2); Prothrombin Time 13.8 sec (9.0-12.0)
[2019-05-16 06:39] LABS: Calcium 9.3 mg/dL (8.4-10.2); Magnesium 1.5 mg/dL (1.6-2.3); Potassium 3.9 mmol/L (3.5-5.1)
[2019-05-16] MEDS: ACETAMINOPHEN TAB 500 MG TAB PO SCH (08:03)
[2019-05-16] MEDS: CALCITRIOL 0.25 MCG CAP PO SCH (08:03)
[2019-05-16] MEDS: FERROUS SULFATE 325 MG TAB PO SCH (08:03)
[2019-05-16] MEDS: DIGOXIN 125 MCG TAB PO SCH (08:03)
[2019-05-16] MEDS: METOPROLOL SUCCINATE (ER) 50 MG TAB.ER.24H PO SCH (08:05)
[2019-05-16] MEDS: ISOSORBIDE MONONITRATE ER 15 MG TAB PO SCH (08:05)
[2019-05-16] MEDS: ATORVASTATIN 20 MG TAB PO SCH (08:05)
[2019-05-16] MEDS: SENNOSIDES-DOCUSATE SODIUM 1 EACH TAB PO SCH (08:05)
[2019-05-16] MEDS: IPRATROPIUM-ALBUTEROL 3 ML NEB INHALATION SCH ×4 (08:56→19:23)
--- NOTE | 2019-05-16 09:54 | P.PN ---
Subjective Patient is seen in follow-up for acute kidney injury on chronic kidney disease. Patient has chronic kidney disease stage III with baseline creatinine in the range of 1.2-1.5 secondary to nephrosclerosis and cardiorenal syndrome. Diuretics are held. IV fluids have been discontinued. Renal function is better. Creatinine 1.3 today. No vomiting or diarrhea. Vital signs are stable. General: The patient appeared well nourished and normally developed. HEENT: Head exam is unremarkable. Neck is without jugular venous distension. LUNGS: Lungs are clear to auscultation and percussion. Breath sounds decreased. HEART: Rate and Rhythm are regular. First and second heart sounds normal. No murmurs, rubs or gallops. ABDOMEN: Abdominal exam reveals normal bowel sounds. Non-tender and non- distended. No evidence of peritonitis. EXTREMITITES: No clubbing, cyanosis, or edema. Objective - Vital Signs Vital signs: Vital Signs Temp 97.9 F 05/16/19 08:00 Pulse 84 05/16/19 09:09 Resp 20 05/16/19 08:00 BP 164/90 05/16/19 08:00 Pulse Ox 96 05/16/19 08:00 Intake & Output 05/15/19 05/16/19 05/16/19 18:59 06:59 18:59 Intake Total 480 480 Balance 480 480 Weight 79.9 kg 79.7 kg Intake: Oral 480 480 Other: Voiding Method Self-Catheterization # Voids 4 1 # Bowel Movements 1 - Labs CBC & Chem 7: 05/13/19 10:07 05/16/19 05:47 Labs: Abnormal Lab Results - Last 24 Hours (Table) 05/16/19 05/16/19 Range/Units 05:47 05:47 PT 13.8 H (9.0-12.0) sec INR 1.4 H (<1.2) Carbon Dioxide 31 H (22-30) mmol/L BUN 27 H (9-20) mg/dL Creatinine 1.30 H (0.66-1.25) mg/dL Magnesium 1.5 L (1.6-2.3) mg/dL Assessment and Plan Plan: Assessment: 1. Acute kidney injury mostly prerenal secondary to hypotension and diaphoresis. Creatinine was 1.99 on admission and is 1.3 today. UA benign. 2. Chronic kidney disease stage III secondary to nephrosclerosis and cardior enal syndrome. Baseline creatinine near 1.5 outpatient. 3. Hypotension secondary to intravascular volume depletion from diuresis. Improved with IV hydration. 4. Hypokalemia secondary to diuresis. Better post replacement. 5. Chronic kidney disease mineral bone disease maintained on calcitriol. 6. History of urethral stricture. Patient follows with urology. 7. Atrial fibrillation. Maintained on anticoagulation. 8. Diastolic CHF with mild to moderate tricuspid regurgitation and pulmonary hypertension. Plan: Remains off IV fluids. Encouraged oral intake. Hold off on diuretics for now. I advised the patient to resume Lasix at a dose of 60 mg once daily if notices more than 2-3 pound weight gain or worsening of dyspnea/edema. He will need to follow-up outpatient in the next 1-2 weeks.
--- NOTE | 2019-05-16 10:54 | P.PN ---
Subjective appraiser [employer] hospitalist covering jorge morales over the weekend This is an 84-year-old gentleman with medical history of atrial fibrillation, CHF, COPD, hyperlipidemia, hypertension, osteoarthritis,CKD III, cardiorenal syndrome, chronic urinary retention, sleep apnea-refuses CPAP, and gait dysfunction, former smoker, history of alcohol abuse and multiple other medical issues presented to the ER with complaints of significantly increased weakness with resulting fall. States he did hit his head, brain CT ordered and pending. Denies lightheadedness, dizziness or focal deficits. Denies headache. Denies chest pain, palpitations or increased shortness of breath. Denies nausea vomiting or diarrhea Denies any fever or chills. Reports fair appetite. Patient was also placed on scheduled metalozone for a few days last week by his PCP, but misunderstood and continued taking the medication. Reports weight loss,; approximately 3 kg down from last months visit. EKG reporting controlled atrial fibrillation, chest x-ray reporting nonacute, stable moderate cardiomegaly, stable small right pleural effusions. Mild orthostatic hypotension. Troponins 0.050, 0.033, 0.041. Digoxin level 0.8, afebrile, normal WBC. INR 5.2. Potassium 3.4, received supplementation.Magnesium 1.7, supplemented BUN 50, creatinine 1.99, down to 44 and 1.72 today.UA benign Placed on gentle IV fluid hydration. Lasix placed on hold. Subjective: 05/15/2019 This is a pleasant 84 years old male who presents with fall and generalized weakness, on admission he had positive orthostatic hypotension and acute kidney injury on the top of chronic kidney disease. His creatinine is improving down from 1.7 to 1.5. Patient with no chest pain or dyspnea however he has positive troponins. We'll consult cardiology team. No abdominal complaints of nausea vomiting. Patient tolerating diet well. No change in urine or bowel habits. No fever. His IV fluids was discontinued. His INR subtherapeutic, we will restart his Coumadin today. 05/16/2019 Patient feels is improving, he is fully awake and denying chest pain or dyspnea. His affect tachycardic and hypertensive this morning with heart rate 104 and blood pressure 160/90. Labs reviewed which show an INR is coming down to 1.4, her creatinine is 1.3, electrolytes within normal limits. Magnesium low at 1.5. Replaced. Nephrology input follow-up is appreciated. Lasix and metolazone last on hold. Warfarin is restarted for his A. fib. Patient will need nephrology follow-up in 1-2 weeks per recommendation. Objective - Vital Signs Vital signs: Vital Signs Temp 97.9 F 05/16/19 08:00 Pulse 84 05/16/19 09:09 Resp 20 05/16/19 08:00 BP 164/90 05/16/19 08:00 Pulse Ox 96 05/16/19 08:00 Intake & Output 05/15/19 05/16/19 05/16/19 18:59 06:59 18:59 Intake Total 480 480 Balance 480 480 Weight 79.9 kg 79.7 kg Intake: Oral 480 480 Other: Voiding Method Self-Catheterization # Voids 4 1 # Bowel Movements 1 - Exam GENERAL: The patient is alert and oriented x3, not in any acute distress. Generally weak. HEENT: Pupils are round and equally reacting to light. EOMI. No scleral icterus. No conjunctival pallor. Normocephalic, atraumatic. No pharyngeal erythema. No thyromegaly. CARDIOVASCULAR: S1 and S2 present. No murmurs, rubs, or gallops. PULMONARY: Chest is clear to auscultation, no wheezing or crackles. ABDOMEN: Soft, nontender, nondistended, normoactive bowel sounds. No palpable organomegaly. MUSCULOSKELETAL: No joint swelling or deformity. EXTREMITIES: No cyanosis, clubbing, or pedal edema. NEUROLOGICAL: Gross neurological examination did not reveal any focal deficits. SKIN: No rashes. - Labs CBC & Chem 7: 05/13/19 10:07 05/16/19 05:47 Labs: Abnormal Lab Results - Last 24 Hours (Table) 05/16/19 05/16/19 Range/Units 05:47 05:47 PT 13.8 H (9.0-12.0) sec INR 1.4 H (<1.2) Carbon Dioxide 31 H (22-30) mmol/L BUN 27 H (9-20) mg/dL Creatinine 1.30 H (0.66-1.25) mg/dL Magnesium 1.5 L (1.6-2.3) mg/dL Assessment and Plan Assessment: -Generalized weakness, status post fall, mild symptomatic orthostatic hypotension, improving -Acute renal failure on chronic renal failure stage III. Baseline creatinine 1.2-1.5. Improving -Hypotension secondary to intravascular volume depletion r/t diuresis. Improving -Mild symptomatic orthostatic hypotension secondary to the above -Hypokalemia secondary to diuresis -Hypomagnesemia -COPD, stable -Chronic controlled Atrial fibrillation. -Hypercoagulopathy, Coumadin on hold -Chronic CHF with diastolic dysfunction -Objective sleep apnea. Patient refuses to use CPAP at home -Hypertension -Hyperlipidemia -Chronic urinary retention. Uses straight catheterization at home. -History of urethral stricture, follows with urology -Macular degeneration of left eye -Previous history of smoking. Plan: Continue current medication regime ,monitoring and symptomatic treatment. Stop IV fluids. Restart Coumadin..Home meds have been reviewed and resumed. Cardiology and nephrology consults placed. PT/OT. Close monitoring of renal function and electro lytes with repeat labs ordered for a.m. date of extra dose of Coumadin. Continue with home dose of Coumadin. GI prophylaxis in place. DVT prophylaxis: Started on Coumadin. He was on Lasix and metolazone by his primary team which are on hold now. 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 Dr. Ladarius Hodges will resume the care of the patient tomorrow 05/17/2019
[2019-05-16] MEDS: MAGNESIUM SULFATE-D5W PMX 1 GM in DEXTROSE/WATER 1 100ML.BAG IVPB SCH ×2 (11:11→12:11)
--- NOTE | 2019-05-16 12:35 | P.PN ---
Subjective This is a pleasant 84-year-old male past medical history significant for COPD, obstructive sleep apnea, chronic persistent atrial fibrillation on long-term anticoagulation, hypertension, dyslipidemia and former alcohol and nicotine dependence. He follows in the office with Dr. Donahue. We have been asked to see him in consultation secondary to heart failure. He states he was at home doing his normal routine activities walking around his home when he suddenly fell down. He denies having any dizziness or lightheadedness prior to this episode. He states he simply fell. He did not trip he did not consciousness. He had no preceding chest pain, shortness of breath or palpitations. He states he hit his head on the left side. He did not initially commend for evaluation and the following morning when he woke up he felt inc reasingly weak, tired and lightheaded. Upon arrival to the emergency department his INR was 5.2. CT of the brain was negative for any acute intracranial process. He is seen and examined resting comfortably in no acute distress. He continues to deny any symptoms of chest discomfort or shortness of breath. He was found to have orthostatic changes upon arrival to the emergency department with close blood pressure while standing and he 3/57. Dropped from 120/92. Repeat orthostatic vital signs last evening were unremarkable. Lasix has been held since admission. He was also started on Zaroxolyn by his primary care physician last week which has been held. EKG reveals atrial fibrillation with controlled ventricular response. No acute ST or T wave abnormalities noted. Chest x-ray reveals chronic parenchymal changes are mild cardiomegaly with a small stable right pleural effusion. Laboratory data reviewed, WBC 9.2, hemoglobin 13.9, platelets 294, INR on admission 5. 2 repeat today 1.7, troponin 0.050, 0.033 and 0.041, creatinine 1.72 with a GFR of 36, potassium 3.5, magnesium 1.9, sodium 134 and proBNP 1540. Most recent echocardiogram obtained in the office May 2017 reveals preserved LV systolic function with ejection fraction 55%. Most recent Lexiscan performed in the office February 2019 reveals partially reversible defect with moderate hypoperfusion of the apical segment. At that time with the absence of angina conservative medical approach was taken. Current cardiac medications include Coumadin, Toprol 50 mg daily, Imdur 15 mg daily, Lasix 60 mg twice a day, digoxin 125 g daily and atorvastatin 20 mg daily. 05/16/2018 Pt is seen and examined sitting up in bed in no acute distress. He denies chest pain, shortness of breath, dizziness or palpitations. Repeat echocardiogram reveals preserved LV systolic function with ejection fraction 55-60%, mild MR, mild to moderate tricuspid regurgitation and mild pulmonary hypertension with an RVSP of 45 mmHg. Laboratory data reviewed, INR 1.4, sodium 139, potassium 3.9, creatinine 1.3. Blood pressure 164/90 with a heart rate of 104. GENERAL: This is a 84-year-old male in no apparent distress at the time of my examination. HEENT: Head is atraumatic, normocephalic. Pupils are equal, round. Sclerae anicteric. Conjunctivae are clear. Mucous membranes of the mouth are moist. Neck is supple. There is no jugular venous distention. No carotid bruit is heard. LUNGS: Clear to auscultation no wheezes, rales or rhonchi. No chest wall tenderness is noted on palpation or with deep breathing. HEART: Irregular rate and rhythm without murmurs, rubs or gallops. S1 and S2 heard. EXTREMITIES: No evidence of peripheral edema and no calf tenderness noted. ASSESSMENT Fall from standing, no loss of consciousness Chronic persistent atrial fibrillation on long-term anticoagulation Supratherapeutic INR Acute kidney injury Orthostatic hypotension History of chronic urinary retention, straight caths 4 times daily. PLAN Stable from a cardiac perspective. Nephrology recommendation regarding diuretics is to continue to hold at home and use PRN. Follow up in the office with Dr. Donahue upon discharge. PT/INR in the office in 2 days. Nurse Practitioner note has been reviewed, I agree with a documented findings and plan of care. Patient was seen and examined. Objective - Vital Signs Vital signs: Vital Signs Temp 97.9 F 05/16/19 08:00 Pulse 88 05/16/19 12:19 Resp 20 05/16/19 08:00 BP 164/90 05/16/19 08:00 Pulse Ox 96 05/16/19 08:00 Intake & Output 05/15/19 05/16/19 05/16/19 18:59 06:59 18:59 Intake Total 480 480 Balance 480 480 Weight 79.9 kg 79.7 kg Intake: Oral 480 480 Other: Voiding Method Self-Catheterization # Voids 4 1 # Bowel Movements 1 - Labs CBC & Chem 7: 05/13/19 10:07 05/16/19 05:47 Labs: Abnormal Lab Results - Last 24 Hours (Table) 05/16/19 05/16/19 Range/Units 05:47 05:47 PT 13.8 H (9.0-12.0) sec INR 1.4 H (<1.2) Carbon Dioxide 31 H (22-30) mmol/L BUN 27 H (9-20) mg/dL Creatinine 1.30 H (0.66-1.25) mg/dL Magnesium 1.5 L (1.6-2.3) mg/dL
[2019-05-16] MEDS ORDERED: WARFARIN 5 MG TAB PO ONE (18:00)
[2019-05-16] MEDS: TAMSULOSIN 0.4 MG CAP.ER.24H PO SCH (20:35)
[2019-05-16 23:51] VITALS: BP 129/73
[2019-05-17 06:10] LABS: INR 1.5 (<1.2); Prothrombin Time 15.2 sec (9.0-12.0)
[2019-05-17 06:19] LABS: Calcium 9.2 mg/dL (8.4-10.2); Magnesium 1.7 mg/dL (1.6-2.3)
[2019-05-17] MEDS: IPRATROPIUM-ALBUTEROL 3 ML NEB INHALATION SCH (08:50)
[2019-05-17] MEDS ORDERED: CALCITRIOL 0.25 MCG CAP PO SCH (09:00)
--- NOTE | 2019-05-17 09:08 | P.PN ---
Subjective Patient is seen in follow-up for acute kidney injury on chronic kidney disease. Patient has chronic kidney disease stage III with baseline creatinine in the range of 1.2-1.5 secondary to nephrosclerosis and cardiorenal syndrome. Diuretics are held. IV fluids have been discontinued. Renal function is better. Creatinine 1.14 today. No vomiting or diarrhea. Vital signs are stable. General: The patient appeared well nourished and normally developed. HEENT: Head exam is unremarkable. Neck is without jugular venous distension. LUNGS: Lungs are clear to auscultation and percussion. Breath sounds decreased. HEART: Rate and Rhythm are regular. First and second heart sounds normal. No murmurs, rubs or gallops. ABDOMEN: Abdominal exam reveals normal bowel sounds. Non-tender and non- distended. No evidence of peritonitis. EXTREMITITES: No clubbing, cyanosis, or edema. Objective - Vital Signs Vital signs: Vital Signs Temp 97.5 F L 05/16/19 23:50 Pulse 88 05/17/19 09:02 Resp 17 05/17/19 00:00 BP 129/73 05/16/19 23:50 Pulse Ox 97 05/17/19 08:50 Intake & Output 05/16/19 05/17/19 05/17/19 18:59 06:59 18:59 Intake Total 960 240 Balance 960 240 Weight 79.4 kg Intake: Oral 960 240 Other: Voiding Method Self-Catheterization # Voids 3 1 # Bowel Movements 2 1 - Labs CBC & Chem 7: 05/13/19 10:07 05/17/19 05:48 Labs: Abnormal Lab Results - Last 24 Hours (Table) 05/17/19 Range/Units 05:48 PT 15.2 H (9.0-12.0) sec INR 1.5 H (<1.2) Assessment and Plan Plan: Assessment: 1. Acute kidney injury mostly prerenal secondary to hypotension and diaphoresis. Creatinine was 1.99 on admission and is 1.14 today. UA benign. 2. Chronic kidney disease stage III secondary to nephrosclerosis and cardiorenal syndrome. Baseline creatinine near 1.5 outpatient. 3. Hypotension secondary to intravascular volume depletion from diuresis. Improved with IV hydration. 4. Hypokalemia secondary to diuresis. Better post replacement. 5. Chronic kidney disease mineral bone disease maintained on calcitriol. 6. History of urethral stricture. Patient follows with urology. 7. Atrial fibrillation. Maintained on anticoagulation. 8. Diastolic CHF with mild to moderate tricuspid regurgitation and pulmonary hypertension. Plan: Remains off IV fluids. Encouraged oral intake. Hold off on diuretics for now. I advised the patient to resume Lasix at a dose of 60 mg once daily if notices more than 2-3 pound weight gain or worsening of dyspnea/edema. He will need to follow-up outpatient in the next 1-2 weeks.
[2019-05-17] MEDS: ISOSORBIDE MONONITRATE ER 15 MG TAB PO SCH (09:21)
[2019-05-17] MEDS: METOPROLOL SUCCINATE (ER) 50 MG TAB.ER.24H PO SCH (09:21)
[2019-05-17] MEDS: FERROUS SULFATE 325 MG TAB PO SCH (09:21)
[2019-05-17] MEDS: ACETAMINOPHEN TAB 500 MG TAB PO SCH (09:22)
[2019-05-17] MEDS: SENNOSIDES-DOCUSATE SODIUM 1 EACH TAB PO SCH (09:22)
[2019-05-17] MEDS: DIGOXIN 125 MCG TAB PO SCH (09:22)
[2019-05-17] MEDS: ATORVASTATIN 20 MG TAB PO SCH (09:23)
[2019-05-17 09:28] VITALS: PULSE 103; RESP 18; TEMP 98.6
--- NOTE | 2019-05-17 12:05 | P.PN ---
Subjective Progress Note Date: 05/17/19 This is a pleasant 84-year-old male past medical history significant for COPD, obstructive sleep apnea, chronic persistent atrial fibrillation on long-term anticoagulation, hypertension, dyslipidemia and former alcohol and nicotine dependence. He follows in the office with Dr. Donahue. He presented to the hospital after experiencing a fall, patient has known chronic atrial fibrillation, was also noted to have abnormality in his troponin, representing non-UT troponin elevation due to underlying cause. He was seen and examined this morning, hemodynamically stable. Anticipating discharge home today. Objective - Vital Signs Vital signs: Vital Signs Temp 98.6 F 05/17/19 07:00 Pulse 88 05/17/19 09:02 Resp 18 05/17/19 08:00 BP 129/73 05/17/19 07:00 Pulse Ox 97 05/17/19 08:50 Intake & Output 05/16/19 05/17/19 05/17/19 18:59 06:59 18:59 Intake Total 960 240 Balance 960 240 Weight 79.4 kg Intake: Oral 960 240 Other: Voiding Method Self-Catheterization Self-Catheterization # Voids 3 1 # Bowel Movements 2 1 - Exam GENERAL: This is a 84-year-old male in no apparent distress at the time of my examination. HEENT: Head is atraumatic, normocephalic. Pupils are equal, round. Sclerae anicteric. Conjunctivae are clear. Mucous membranes of the mouth are moist. Neck is supple. There is no jugular venous distention. No carotid bruit is heard. LUNGS: Clear to auscultation no wheezes, rales or rhonchi. No chest wall tenderness is noted on palpation or with deep breathing. HEART: Irregular rate and rhythm without murmurs, rubs or gallops. S1 and S2 heard. EXTREMITIES: No evidence of peripheral edema and no calf tenderness noted. - Labs CBC & Chem 7: 05/13/19 10:07 05/17/19 05:48 Labs: Abnormal Lab Results - Last 24 Hours (Table) 05/17/19 Range/Units 05:48 PT 15.2 H (9.0-12.0) sec INR 1.5 H (<1.2) Assessment and Plan Plan: ASSESSMENT AND PLAN #1Fall from standing, no loss of consciousness #2Chronic persistent atrial fibrillation on long-term anticoagulation #3Supratherapeutic INR #4Acute kidney injury #5Orthostatic hypotension #6History of chronic urinary retention, straight caths 4 times daily. Plan From cardiology's perspective, patient may be able to be discharged home today. We will make a follow-up appointment with Dr. Donahue in the office post discharge. DNP note has been reviewed, I agree with a documented findings and plan of care. Patient was seen and examined.
[2019-05-18] MEDS ORDERED: WARFARIN 2.5 MG TAB PO SCH (18:00)
[2019-05-27] MEDS ORDERED: ERGOCALCIFEROL 50,000 UNIT CAP PO SCH (09:00)
== END 2019-05-17 11:55 | disposition home or self-care (01) | DRG 683 ==
LOC: EC 09:26 → 3SCARD 12:11 → OBSVTOIN 05-15 14:19
PROVIDERS: ADMIT Family Medicine; ATTEND Family Medicine
DX: N17.9 Acute kidney failure, unspecified (principal); I13.0 Hypertensive heart and chronic kidney disease with heart failure and stage 1 through stage 4 chronic kidney disease, or unspecified chronic kidney disease; I50.32 Chronic diastolic (congestive) heart failure; N18.3 Chronic kidney disease, stage 3 (moderate); E86.9 Volume depletion, unspecified; I27.20 Pulmonary hypertension, unspecified; I48.2 Chronic atrial fibrillation; J44.9 Chronic obstructive pulmonary disease, unspecified; E83.42 Hypomagnesemia; I07.1 Rheumatic tricuspid insufficiency; N14.1 Nephropathy induced by other drugs, medicaments and biological substances; E78.5 Hyperlipidemia, unspecified; E87.6 Hypokalemia; G47.33 Obstructive sleep apnea (adult) (pediatric); H35.30 Unspecified macular degeneration; I95.1 Orthostatic hypotension; E83.89 Other disorders of mineral metabolism; N40.1 Benign prostatic hyperplasia with lower urinary tract symptoms; T50.2X5A Adverse effect of carbonic-anhydrase inhibitors, benzothiadiazides and other diuretics, initial encounter; R33.9 Retention of urine, unspecified; M19.042 Primary osteoarthritis, left hand; M19.041 Primary osteoarthritis, right hand; M17.0 Bilateral primary osteoarthritis of knee; R77.9 Abnormality of plasma protein, unspecified; R79.1 Abnormal coagulation profile; N35.919 Unspecified urethral stricture, male, unspecified site; Z79.01 Long term (current) use of anticoagulants; Z79.899 Other long term (current) drug therapy; Z87.891 Personal history of nicotine dependence; Z88.5 Allergy status to narcotic agent; Z80.6 Family history of leukemia; Z80.8 Family history of malignant neoplasm of other organs or systems; Z82.49 Family history of ischemic heart disease and other diseases of the circulatory system; W18.30XA Fall on same level, unspecified, initial encounter
CPT/HCPCS: 36415; 70450; 71046; 80048; 80053; 80162; 81003; 83605; 83735; 83880; 84484; 85025; 85610; 85730; 93005; 93306; 94640; 94760; 96360; 99285

== ENCOUNTER → 2019-07-01 | Outpatient (CLI) | payer MEDICARE ==
[2019-07-01 08:51] LABS: Anisocytosis Slight; Basophils % (A) 1 %; Eosinophils # (A) 0.3 k/uL (0-0.7); Eosinophils % (A) 3 %; HCT 34.7 % (39.0-53.0); HGB 11.2 gm/dL (13.0-17.5); Lymphocytes # (A) 1.4 k/uL (1.0-4.8); Lymphocytes % (A) 17 %; MCH 30.8 pg (25.0-35.0); MCHC 32.3 g/dL (31.0-37.0); MCV 95.2 fL (80.0-100.0); Mean Platelet Volume 7.3; Monocytes # (A) 0.5 k/uL (0-1.0); Monocytes % (A) 6 %; Neutrophils # (A) 5.9 k/uL (1.3-7.7); Neutrophils % (A) 72 %; Platelet Count 263 k/uL (150-450); RBC 3.65 m/uL (4.30-5.90); RDW 16.4 % (11.5-15.5); WBC 8.2 k/uL (3.8-10.6)
[2019-07-01 09:19] LABS: Appearance,Urine Clear (Clear); Bilirubin,Urine Negative (Negative); Blood,Urine Negative (Negative); Color,Urine Yellow; Glucose,Urine (UA) Negative (Negative); Hyaline Casts,Urine 1 /lpf (0-2); Ketones,Urine Negative (Negative); Leukocyte Esterase,Urine Large (Negative); Mucus,Urine Rare /hpf; Nitrite,Urine Negative (Negative); PH, Urine 5.5 (5.0-8.0); Protein,Urine 1+ (Negative); RBC,Urine 8 /hpf (0-5); Specific Gravity,Urine 1.012 (1.001-1.035); Squamous Epithelial Cell,Urine 1 /hpf (0-4); Urobilinogen,Urine <2.0 mg/dL (<2.0); WBC,Urine 99 /hpf (0-5)
[2019-07-01 16:10] LABS: Iron Saturation 12.26 (15.00-50.00)
[2019-07-01 16:16] LABS: African American GFR (CKD) 49.2 (60.0-200.0); Albumin 4.3 g/dL (3.80-4.90); Anion Gap 11.6 mmol/L (4.00-12.00); BUN/Creat Ratio 15.33 Ratio (12.00-20.00); Calcium 9.4 mg/dL (8.7-10.3); Carbon Dioxide 26.4 mmol/L (21.6-31.8); Magnesium 1.8 mg/dL (1.5-2.4); Phosphorus 3.1 mg/dL (2.4-5.1); Potassium 3.6 mmol/L (3.5-5.5); Uric Acid 6.6 mg/dL (3.7-8.7)
[2019-07-01 18:36] LABS: Creatinine,Urine Random 77.3 mg/dL
[2019-07-01 18:54] LABS: Total Protein,Urine Random 43.4 mg/dL (0.0-13.5)
== END | disposition home or self-care (01) ==
LOC: LABWHC1 08:00
PROVIDERS: ATTEND Internal Medicine Nephrology
DX: M10.9 Gout, unspecified (principal); D63.1 Anemia in chronic kidney disease; N18.3 Chronic kidney disease, stage 3 (moderate); R80.9 Proteinuria, unspecified
CPT/HCPCS: 36415; 80048; 81001; 82040; 82306; 82570; 82728; 83540; 83550; 83735; 83970; 84100; 84156; 84550; 85025

== ENCOUNTER → 2019-11-30 | Outpatient (CLI) | payer MEDICARE ==
[2019-11-30 09:50] LABS: Basophils # (A) 0.1 k/uL (0-0.2); Basophils % (A) 1 %; Eosinophils # (A) 0.6 k/uL (0-0.7); Eosinophils % (A) 6 %; HCT 46.9 % (39.0-53.0); HGB 15.3 gm/dL (13.0-17.5); Lymphocytes # (A) 1.8 k/uL (1.0-4.8); Lymphocytes % (A) 20 %; MCH 29.9 pg (25.0-35.0); MCHC 32.5 g/dL (31.0-37.0); Mean Platelet Volume 7.8; Monocytes # (A) 0.5 k/uL (0-1.0); Monocytes % (A) 5 %; Neutrophils # (A) 5.8 k/uL (1.3-7.7); Neutrophils % (A) 65 %; Platelet Count 239 k/uL (150-450); RDW 14.5 % (11.5-15.5); WBC 8.8 k/uL (3.8-10.6)
[2019-11-30 10:37] LABS: Appearance,Urine Cloudy (Clear); Bilirubin,Urine Negative (Negative); Blood,Urine Large (Negative); Color,Urine Yellow; Glucose,Urine (UA) Negative (Negative); Hyaline Casts,Urine 4 /lpf (0-2); Ketones,Urine Negative (Negative); Leukocyte Esterase,Urine Large (Negative); Mucus,Urine Rare /hpf; Nitrite,Urine Negative (Negative); Protein,Urine 1+ (Negative); RBC,Urine >182 /hpf (0-5); Specific Gravity,Urine 1.014 (1.001-1.035); Squamous Epithelial Cell,Urine 1 /hpf (0-4); Urobilinogen,Urine <2.0 mg/dL (<2.0); WBC,Urine 100 /hpf (0-5)
[2019-11-30 10:47] LABS: Protein/Creatinine Ratio,Urine 1.26
[2019-11-30 18:09] LABS: % Iron Saturation 29.79 (15.00-50.00); African American GFR (CKD) 45.5 (60.0-200.0); Albumin 4.4 g/dL (3.80-4.90); Anion Gap 11.3 mmol/L (4.00-12.00); BUN/Creat Ratio 20.63 Ratio (12.00-20.00); Calcium 9.4 mg/dL (8.7-10.3); Carbon Dioxide 28.7 mmol/L (21.6-31.8); Ferritin 243.3 ng/mL (22.0-322.0); Magnesium 2.2 mg/dL (1.5-2.4); Non-African American GFR(CKD) 39.3 (60.0-200.0); Uric Acid 6.4 mg/dL (3.7-8.7)
== END | disposition home or self-care (01) ==
LOC: LABWHC1 09:01
PROVIDERS: ATTEND Nurse Practitioner Family
DX: N18.3 Chronic kidney disease, stage 3 (moderate) (principal); N25.81 Secondary hyperparathyroidism of renal origin; D63.1 Anemia in chronic kidney disease; M10.9 Gout, unspecified; E55.9 Vitamin D deficiency, unspecified; R80.9 Proteinuria, unspecified
CPT/HCPCS: 36415; 80048; 81001; 82040; 82306; 82570; 82728; 83540; 83550; 83735; 83970; 84100; 84156; 84550; 85025

== ENCOUNTER → 2020-05-02 | Outpatient (CLI) | payer MEDICARE ==
[2020-05-02 08:18] LABS: Basophils # (A) 0.1 k/uL (0-0.2); Basophils % (A) 1 %; Eosinophils # (A) 0.6 k/uL (0-0.7); Eosinophils % (A) 8 %; HCT 42.8 % (39.0-53.0); HGB 14.5 gm/dL (13.0-17.5); Lymphocytes # (A) 1.7 k/uL (1.0-4.8); Lymphocytes % (A) 21 %; MCH 32.2 pg (25.0-35.0); MCHC 33.9 g/dL (31.0-37.0); MCV 94.9 fL (80.0-100.0); Mean Platelet Volume 7.8; Monocytes # (A) 0.5 k/uL (0-1.0); Monocytes % (A) 6 %; Neutrophils # (A) 5.3 k/uL (1.3-7.7); Neutrophils % (A) 64 %; Platelet Count 224 k/uL (150-450); RBC 4.51 m/uL (4.30-5.90); WBC 8.2 k/uL (3.8-10.6)
[2020-05-02 08:29] LABS: Appearance,Urine Clear (Clear); Bacteria,Urine Rare /hpf; Bilirubin,Urine Negative (Negative); Blood,Urine Moderate (Negative); Color,Urine Yellow; Glucose,Urine (UA) Negative (Negative); Ketones,Urine Negative (Negative); Leukocyte Esterase,Urine Moderate (Negative); Mucus,Urine Rare /hpf; Nitrite,Urine Negative (Negative); PH, Urine 6.5 (5.0-8.0); Protein,Urine 1+ (Negative); RBC,Urine 71 /hpf (0-5); Specific Gravity,Urine 1.014 (1.001-1.035); Squamous Epithelial Cell,Urine 3 /hpf (0-4); Urobilinogen,Urine <2.0 mg/dL (<2.0); WBC,Urine 25 /hpf (0-5)
[2020-05-02 08:41] LABS: Protein/Creatinine Ratio,Urine 1.155
[2020-05-02 11:20] LABS: Ferritin 248.5 ng/mL (22.0-322.0)
[2020-05-02 13:04] LABS: % Iron Saturation 26.76 (15.00-50.00); African American GFR (CKD) 48.8 (60.0-200.0); Albumin 4.2 g/dL (3.80-4.90); Anion Gap 9.7 mmol/L (4.00-12.00); Calcium 9.4 mg/dL (8.7-10.3); Carbon Dioxide 28.3 mmol/L (21.6-31.8); Non-African American GFR(CKD) 42.1 (60.0-200.0); Phosphorus 3.2 mg/dL (2.4-5.1); Potassium 3.8 mmol/L (3.5-5.5); Uric Acid 6.3 mg/dL (3.7-8.7)
== END | disposition home or self-care (01) ==
LOC: LABWHC1 07:18
PROVIDERS: ATTEND Nurse Practitioner Family
DX: N18.3 Chronic kidney disease, stage 3 (moderate) (principal); E55.9 Vitamin D deficiency, unspecified; N25.81 Secondary hyperparathyroidism of renal origin; M10.9 Gout, unspecified; R80.9 Proteinuria, unspecified; D63.1 Anemia in chronic kidney disease
CPT/HCPCS: 36415; 80048; 81001; 82040; 82306; 82570; 82728; 83540; 83550; 83735; 83970; 84100; 84156; 84550; 85025

== ENCOUNTER → 2020-06-23 | Outpatient (CLI) | payer MEDICARE ==
[2020-06-23 16:48] LABS: African American GFR (CKD) 48.8 (60.0-200.0); BUN/Creat Ratio 15.33 Ratio (12.00-20.00); Calcium 9.3 mg/dL (8.7-10.3); Non-African American GFR(CKD) 42.1 (60.0-200.0)
== END | disposition home or self-care (01) ==
LOC: LABWHC1 08:17
PROVIDERS: ATTEND Nurse Practitioner Family
DX: N18.3 Chronic kidney disease, stage 3 (moderate) (principal)
CPT/HCPCS: 36415; 80048

== ENCOUNTER → 2021-01-22 | Outpatient (CLI) | payer MEDICARE ==
--- NOTE | 2021-01-22 11:07 | US ---
EXAMINATION TYPE: US kidneys/renal and bladder DATE OF EXAM: 01/22/2021 COMPARISON: 11/06/2016 CLINICAL HISTORY: 85-year-old male N18.3 chronic kidney stage 3. TECHNIQUE: Multiple sonographic images of the kidneys and bladder are obtained. FINDINGS: EXAM MEASUREMENTS: Right Kidney: 10.1 x 4.8 x 4.4cm Left Kidney: 9.7 x 4.3 x 4.7 cm Right Kidney: 1.1 x 1.3 x 1.1cm superior pole cyst (versus 1 cm in 2017). No hydronephrosis. Left Kidney: No hydronephrosis. Bladder: wnl Bilateral Jets seen: yes IMPRESSION: Known right upper pole renal cyst currently measuring 1.3 cm. No hydronephrosis on either side.
== END | disposition home or self-care (01) ==
LOC: RADUSWWP 10:05
PROVIDERS: ATTEND Internal Medicine Nephrology
DX: N28.1 Cyst of kidney, acquired (principal)
CPT/HCPCS: 76770